=== PATIENT | male | born 1970 | race Caucasian/White ===

== ENCOUNTER 2016-11-19 16:02 | Inpatient (IN) | payer SELFPAY ==
--- NOTE | 2016-11-19 16:36 | ER Document Report ---
ED Medical Screen (RME) - General Stated Complaint: DIZZINESS Time seen by provider: 16:34 Mode of Arrival: Medic Information source: Patient Notes: Patient states sudden onset of headache, blurred vision, dizziness, chest pain and shortness of breath today. Has had similar episodes in the past. Has a history of high blood pressure, but has been out of his medicine metoprolol for 5 days. Patient denies nausea or vomiting. 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 I have greeted and performed a rapid initial assessment of this patient. A comprehensive ED assessment and evaluation of the patient, analysis of test results and completion of the medical decision making process will be conducted by additional ED providers. TRAVEL OUTSIDE OF THE [place] IN LAST 30 DAYS: No - Related Data Allergies/Adverse Reactions: No Known Allergies Allergy (Verified 11/19/16 16:32) Physical Exam - Vital signs Vitals: Temp Pulse Resp BP Pulse Ox 98.1 F 83 16 202/132 H 95 11/19/16 16:28 11/19/16 16:28 11/19/16 16:28 11/19/16 16:28 11/19/16 16:28 - HEENT Head: Normocephalic Conjunctiva: Normal Extraocular movements intact: Yes Pupils: PERRL - Respiratory Respiratory status: No respiratory distress Breath sounds: Normal - Cardiovascular Rhythm: Regular Heart sounds: Normal auscultation - Neurological Neuro grossly intact: Yes Course - Vital Signs Vital signs: Temp Pulse Resp BP Pulse Ox 98.1 F 83 16 202/132 H 95 11/19/16 16:28 11/19/16 16:28 11/19/16 16:28 11/19/16 16:28 11/19/16 16:28
[2016-11-19 17:11] LABS: ABSOLUTE BASOPHILS # (AUTO) 0.1 10^3/uL (0.0-0.2); ABSOLUTE LYMPHOCYTES (AUTO) 0.9 10^3/uL (0.5-4.7); ABSOLUTE MONOCYTES (AUTO) 0.5 10^3/uL (0.1-1.4); ABSOLUTE NEUT (AUTO) 9.1 10^3/uL (1.7-8.2); BASOPHILS % (AUTO) 0.5 % (0-2); EOSINOPHILS % (AUTO) 0.4 % (0-6); HEMATOCRIT 48.5 % (37.9-51.0); HEMOGLOBIN 15.7 g/dL (13.5-17.0); HGB HCT DIFFERENCE -1.4; LYMPHOCYTES % (AUTO) 8.7 % (13-45); MEAN CORPUSCULAR HEMOGLOBIN 27.2 pg (27.0-33.4); MEAN CORPUSCULAR HGB CONC 32.3 g/dL (32.0-36.0); MEAN CORPUSCULAR VOLUME 84 fl (80-97); MONOCYTES % (AUTO) 4.5 % (3-13); RED BLOOD COUNT 5.76 10^6/uL (4.35-5.55); SEGMENTED NEUTROPHILS % (AUTO) 85.9 % (42-78); WHITE BLOOD COUNT 10.6 10^3/uL (4.0-10.5)
[2016-11-19 17:21] LABS: PROTHROMBIN TIME 12.7 SEC (11.4-15.4)
[2016-11-19 17:35] LABS: ALANINE AMINOTRANSFERASE 23 U/L (21-72); ALBUMIN 4.6 g/dL (3.5-5.0); ALKALINE PHOSPHATASE 76 U/L (38-126); ANION GAP 13 (5-19); ASPARTATE AMINO TRANSFERASE 17 U/L (17-59); BILIRUBIN,TOTAL 0.5 mg/dL (0.2-1.3); BLOOD UREA NITROGEN 11 mg/dL (7-20); CALCIUM 9.7 mg/dL (8.4-10.2); CARBON DIOXIDE 27 mmol/L (22-30); CHLORIDE 99 mmol/L (98-107); CREATINE KINASE 54 U/L (55-170); CREATININE RESULT 0.99 mg/dL (0.52-1.25); GLUCOSE 115 mg/dL (75-110); POTASSIUM 3.8 mmol/L (3.6-5.0); SODIUM 139.3 mmol/L (137-145); TOTAL PROTEIN 7.9 g/dL (6.3-8.2)
[2016-11-19 17:45] LABS: CREATINE KINASE MB 0.24 ng/mL (<4.55)
[2016-11-19 17:48] LABS: TROPONIN I < 0.012 ng/mL
--- NOTE | 2016-11-19 18:17 | EKG REPORT ---
SEVERITY:- ABNORMAL ECG - SINUS RHYTHM LEFT ATRIAL ABNORMALITY LEFT VENTRICULAR HYPERTROPHY BORDERLINE PROLONGED QT INTERVAL : Confirmed by: Alexi Tran MD 19-Nov-2016 18:16:57
[2016-11-19] MEDS ORDERED: LABETALOL HCL INJ 20 MG/4 ML DISP.SYRIN IV ONE (18:27)
[2016-11-19] MEDS ORDERED: CLONIDINE HCL 0.2 MG TABLET PO ONE (18:28)
--- NOTE | 2016-11-19 19:11 | ER Document Report ---
ED Blood Pressure Problem <BANDAR MCKEON - Last Filed: 11/19/16 21:07> - General Mode of Arrival: Medic Information source: Patient TRAVEL OUTSIDE OF THE [place] IN LAST 30 DAYS: No - HPI Patient complains to provider of: High blood pressure, Other - Headache Onset: This afternoon Onset/Duration: Sudden, Persistent Associated symptoms: Blurred vision, Chest pain <MCKENZIE CRUMP - Last Filed: 11/23/16 20:54> - General Chief Complaint: High Blood Pressure Stated Complaint: DIZZINESS Notes: Patient is a 46-year-old male smoker presenting to the emergency department concerned of frontal headache with blurred vision that began at 1500 today while working. Patient states he was sitting at his desk. Patient is normally on blood pressure medications, but he has been out for the past 5 days. Patient' s primary care physician is in [place], but he will begin to see a new primary care provider once he gets health insurance of his jaw. Patient has been on blood pressure medications for the past 2 years. His brother and father both in their early 40s from a heart attack. Patient had a stress test one year ago that showed his right side of his heart is enlarged. Patient only has chest pain when he runs out of his blood pressure medications, but thinks this may be due to anxiety. Patient denies any problems with his kidneys. (MCKENZIE CRUMP) - Related Data Allergies/Adverse Reactions: No Known Allergies Allergy (Verified 11/19/16 16:32) Past Medical History - General Information source: Patient - Social History Smoking Status: Current Every Day Smoker Chew tobacco use (# tins/day): No Frequency of alcohol use: None Drug Abuse: None Family History: Reviewed & Not Pertinent, CAD - Brother 2 have from MIs at 39 and 41, Father passed from MD Patient has suicidal ideation: No Patient has homicidal ideation: No - Past Medical History Cardiac Medical History: Reports: Hx Hypertension Renal/ Medical History: Denies: Hx Peritoneal Dialysis <MCKENZIE CRUMP - Last Filed: 11/23/16 20:54> Review of Systems - Review of Systems Constitutional: No symptoms reported EENT: See HPI, Blurred vision Cardiovascular: See HPI, Chest pain Respiratory: No symptoms reported Gastrointestinal: No symptoms reported. denies: Vomiting Genitourinary: No symptoms reported Male Genitourinary: No symptoms reported Musculoskeletal: No symptoms reported Skin: No symptoms reported Hematologic/Lymphatic: No symptoms reported Neurological/Psychological: See HPI, Headaches - Forehead -: Yes All other systems reviewed and negative <MCKENZIE CRUMP - Last Filed: 11/23/16 20:54> Physical Exam - Vital signs Interpretation: Hypertensive - General General appearance: Alert - HEENT Head: Normocephalic, Atraumatic Eyes: Normal Pupils: PERRL - Respiratory Respiratory status: No respiratory distress Chest status: Nontender Breath sounds: Normal Chest palpation: Normal - Cardiovascular Rhythm: Regular Heart sounds: Normal auscultation Murmur: No - Abdominal Inspection: Normal Distension: No distension Bowel sounds: Normal Tenderness: Nontender Organomegaly: No organomegaly - Back Back: Normal, Nontender - Extremities General upper extremity: Normal inspection, Nontender, Normal color, Normal ROM , Normal temperature General lower extremity: Normal inspection, Nontender, Normal color, Normal ROM , Normal temperature, Normal weight bearing - Neurological Neuro grossly intact: Yes Cognition: Normal James Coma Scale Eye Opening: Spontaneous Effie Coma Scale Verbal: Oriented James Coma Scale Motor: Obeys Commands James Coma Scale Total: 15 Speech: Normal - Psychological Associated symptoms: Normal affect, Normal mood - Skin Skin Temperature: Warm Skin Moisture: Dry Skin Color: Normal <MCKENZIE CRUMP - Last Filed: 11/23/16 20:54> - Vital signs Vitals: Temp Pulse Resp BP Pulse Ox 98.1 F 83 16 202/132 H 95 11/19/16 16:28 11/19/16 16:28 11/19/16 16:28 11/19/16 16:28 11/19/16 16:28 Course - Laboratory Result Diagrams: 11/19/16 16:57 11/19/16 16:57 <BANDAR MCKEON - Last Filed: 11/19/16 21:07> - Laboratory Result Diagrams: 11/20/16 03:54 11/20/16 03:54 - Consults Dr. Pete Time consulted: 20:46 <MCKENZIE CRUMP - Last Filed: 11/23/16 20:54> - Re-evaluation Re-evalutation: 11/19/16 21:04 I personally performed the services described in the documentation, reviewed and edited the documentation which was dictated to my scribe in my presence, and it accurately records my words and actions. presents emergency department with the gradual onset of headache blurred vision and dizziness which started at work around 130s afternoon states he has a long- standing history of high blood pressure ran out of his medication 5 days ago. He said he is new to the area doesn't have a primary care physician described the headache is frontal throbbing associated with blurred vision no syncope or near-syncope blurred vision last and then resolves says he's had similar episodes like this when his blood pressures been high in the past. Said he got short of breath and chest pain what he described was he states that he is having an anxiety attack is really upset about the headache and the blood pressure he began breathing fast that he had tingling in his fingertips and his chest started to hurt. He has no history of MD PE or dissection did state that he had a negative stress test about a year ago. On physical examination blood pressure 202/132. Patient awake alert no neurological deficits no speech impediment no facial droop trach is midline neck is supple heart lungs abdomen are clear. Good pulses and perfusion throughout normal neurological exam with no deficits. CT of the head shows 10 mm density ischemic. Patient is not a candidate or in the window for thrombolytics. No associated hemorrhagic bleed. Blood pressure initially treated with IV labetalol and clonidine did not drop the blood pressure still 198/131 at the bedside start him on a Cardene drip. Spoke with Dr. Pete's can admit the patient to the hospital in the ICU. (BANDAR MCKEON) - Vital Signs Vital signs: Temp Pulse Resp BP Pulse Ox 97.5 F 78 14 146/98 H 99 11/21/16 08:26 11/21/16 08:26 11/21/16 08:26 11/21/16 08:26 11/21/16 08:26 - Laboratory Laboratory results interpreted by me: 11/19/16 11/19/16 16:57 16:57 WBC 10.6 H RBC 5.76 H Seg Neutrophils % 85.9 H Lymphocytes % 8.7 L Absolute Neutrophils 9.1 H Glucose 115 H Creatine Kinase 54 L - Consults Dr. Pete Reason for consultation: 11/19/16 20:47 Dr. Pete was paged. (MCKENZIE CRUMP) Critical Care Note - Critical Care Note Total time excluding time spent on procedures (mins): 75 <BANDAR MCKEON - Last Filed: 11/19/16 21:07> Discharge - Discharge Admitting Provider: Hospitalist Unit Admitted: ICU <BANDAR MCKEON - Last Filed: 11/19/16 21:07> <MCKENZIE CRUMP - Last Filed: 11/23/16 20:54> - Discharge Clinical Impression: Hypertensive crisis CVA (cerebral vascular accident) Qualifiers: CVA mechanism: unspecified Qualified Code(s): I63.9 - Cerebral infarction, unspecified Condition: Stable Disposition: HOME, SELF-CARE Scribe Documentation - Scribe Written by Scribe:: Mckenzie Crump 11/19/2016 1911 acting as scribe for :: Roberto <MCKENZIE CRUMP - Last Filed: 11/23/16 20:54>
[2016-11-19] MEDS ORDERED: LORAZEPAM INJ 2 MG/1 ML VIAL IV ONE (20:08)
[2016-11-19] MEDS ORDERED: LORAZEPAM INJ 2 MG/1 ML VIAL ONE (20:08)
[2016-11-19] MEDS ORDERED: NICARDIPINE HCL RTU, ISO-OS 200 ML IV PRN (20:46)
[2016-11-19] MEDS ORDERED: DIAZEPAM 5 MG TABLET PO PRN (21:11)
[2016-11-19] MEDS ORDERED: HYDRALAZINE HCL INJ/PF 20 MG/1 ML SDV IV PRN (21:16)
[2016-11-19] MEDS ORDERED: ENALAPRILAT DIHYDRATE INJ/PF 2.5 MG/2 ML SDV IV PRN (21:16)
[2016-11-19 21:52] LABS: CREATINE KINASE MB < 0.22 ng/mL (<4.55); TROPONIN I < 0.012 ng/mL
[2016-11-19] MEDS ORDERED: ASPIRIN 325 MG TABLET PO ONE (22:00)
[2016-11-19] MEDS ORDERED: NITROGLYCERIN 2% OINTMENT 1 GM PACKET TP ONE (22:00)
[2016-11-19] MEDS ORDERED: ATORVASTATIN CALCIUM 80 MG TABLET PO SCH (22:00)
[2016-11-19] MEDS ORDERED: DIAZEPAM INJ 10 MG/2 ML DISP.SYRIN IV ONE (22:00)
[2016-11-19 22:01] LABS: URINE BARBITURATES SCREEN NEGATIVE; URINE METHADONE SCREEN NEGATIVE; URINE OPIATES LOW NEGATIVE; URINE PHENCYCLIDINE SCREEN NEGATIVE
[2016-11-20] MEDS ORDERED: CLONIDINE HCL 0.2 MG TABLET PO SCH
[2016-11-20] MEDS ORDERED: NITROGLYCERIN 2% OINTMENT 1 GM PACKET TP SCH (03:00)
[2016-11-20 04:13] LABS: ABSOLUTE BASOPHILS # (AUTO) 0.1 10^3/uL (0.0-0.2); ABSOLUTE EOSINOPHILS # (AUTO) 0.2 10^3/uL (0.0-0.6); ABSOLUTE MONOCYTES (AUTO) 0.6 10^3/uL (0.1-1.4); ABSOLUTE NEUT (AUTO) 4.8 10^3/uL (1.7-8.2); EOSINOPHILS % (AUTO) 2.9 % (0-6); HEMOGLOBIN 15.3 g/dL (13.5-17.0); HGB HCT DIFFERENCE -0.1; LYMPHOCYTES % (AUTO) 25.7 % (13-45); MEAN CORPUSCULAR HEMOGLOBIN 27.9 pg (27.0-33.4); MEAN CORPUSCULAR HGB CONC 33.2 g/dL (32.0-36.0); MEAN CORPUSCULAR VOLUME 84 fl (80-97); MONOCYTES % (AUTO) 7.9 % (3-13); RED BLOOD COUNT 5.47 10^6/uL (4.35-5.55); RED CELL DISTRIBUTION WIDTH 14.4 % (11.5-14.0); SEGMENTED NEUTROPHILS % (AUTO) 62.5 % (42-78); WHITE BLOOD COUNT 7.7 10^3/uL (4.0-10.5)
[2016-11-20] MEDS ORDERED: THIAMINE HCL 100 MG, FOLIC ACID 1 MG in NORMAL SALINE 50 ML IV SCH (04:15)
[2016-11-20 04:27] LABS: ANION GAP 10 (5-19); BLOOD UREA NITROGEN 10 mg/dL (7-20); CALCIUM 9.4 mg/dL (8.4-10.2); CARBON DIOXIDE 25 mmol/L (22-30); CHLORIDE 106 mmol/L (98-107); CHOLESTEROL 168.74 mg/dL (0-200); CREATINE KINASE 44 U/L (55-170); CREATININE RESULT 0.98 mg/dL (0.52-1.25); Direct HDL 33 mg/dL (>40); GLUCOSE 93 mg/dL (75-110); POTASSIUM 3.5 mmol/L (3.6-5.0); SODIUM 140.9 mmol/L (137-145); TRIGLYCERIDES 120 mg/dL (<150)
[2016-11-20 04:38] LABS: DIRECT LDL 110 mg/dL (<100)
[2016-11-20 04:43] LABS: CREATINE KINASE MB < 0.22 ng/mL (<4.55); TROPONIN I < 0.012 ng/mL
[2016-11-20] MEDS ORDERED: THIAMINE HCL INJ 200 MG/2 ML VIAL IV SCH (05:00)
[2016-11-20] MEDS ORDERED: FOLIC ACID INJ 5 MG/1 ML 10 ML VIAL IV SCH (05:00)
[2016-11-20] MEDS ORDERED: ASPIRIN 325 MG TABLET PO SCH (10:00)
[2016-11-20] MEDS ORDERED: DOCUSATE SODIUM 100 MG CAPSULE PO SCH (10:00)
[2016-11-20] MEDS ORDERED: DIAZEPAM 5 MG TABLET PO PRN (11:23)
[2016-11-20 11:28] LABS: CREATINE KINASE MB < 0.22 ng/mL (<4.55); TROPONIN I < 0.012 ng/mL
--- NOTE | 2016-11-20 11:37 | PDOC PROGRESS REPORT ---
Subjective Progress Note for:: 11/20/16 Subjective:: Patient denies chest pain, focal weakness numbness, headaches, visual disturbance. He does complain of depression and anxiety since moving here from [facility] recently. He is unemployed and states he is not able to make any friends. He states that he never leaves his bedroom and has difficulty sleeping at night. He states that one point couple weeks ago he was having suicidal thoughts. He currently denies suicidal ideation at this time. Patient denies fever, chills, headache, new focal weakness, chest pain, shortness of breath, abdominal pain, nausea, vomiting, diarrhea, constipation. Physical Exam Vital Signs: Temp Pulse Resp BP Pulse Ox 98.1 F 67 16 149/107 H 93 11/19/16 16:28 11/20/16 06:00 11/20/16 09:01 11/20/16 09:01 11/20/16 09:01 GENERAL: No acute distress HEENT: Conjunctiva clear, nonicteric, moist mucous membranes, no JVD, midline trachea RESPIRATORY: Clear to auscultation bilaterally, no wheezes, no rhonchi CARDIAC: Regular rate and rhythm, no murmurs/gallops/rubs ABDOMEN: Soft, nondistended, nontender, positive bowel sounds, no rebound, no guarding EXTREMETIES: No edema, cyanosis, clubbing NEUROLOGIC: Alert, oriented to person/place/time, CN's grossly intact, no focal deficits SKIN: No rash, wounds PSYCH: Depressed mood, flat affect MUSCULOSKELETAL: Reproducible left lateral chest wall tenderness Results Laboratory Results: 11/20/16 03:54 11/20/16 03:54 11/20/16 11/20/16 11/20/16 03:54 03:54 03:54 WBC 7.7 RBC 5.47 Hgb 15.3 Hct 46.0 MCV 84 MCH 27.9 MCHC 33.2 RDW 14.4 H Plt Count 238 Seg Neutrophils % 62.5 Lymphocytes % 25.7 Monocytes % 7.9 Eosinophils % 2.9 Basophils % 1.0 Absolute Neutrophils 4.8 Absolute Lymphocytes 2.0 Absolute Monocytes 0.6 Absolute Eosinophils 0.2 Absolute Basophils 0.1 Sodium 140.9 Potassium 3.5 L Chloride 106 Carbon Dioxide 25 Anion Gap 10 BUN 10 Creatinine 0.98 Est GFR ( Amer) > 60 Est GFR (Non-Af Amer) > 60 Glucose 93 Calcium 9.4 Triglycerides 120 Cholesterol 168.74 LDL Cholesterol Direct 110 H VLDL Cholesterol 24.0 HDL Cholesterol 33 L TSH 0.73 11/19/16 11/20/16 11/20/16 21:15 03:54 03:54 Creatine Kinase 44 L CK-MB (CK-2) < 0.22 < 0.22 Troponin I < 0.012 < 0.012 Impressions: Chest X-Ray 11/19/16 16:36 IMPRESSION: Minimal subsegmental atelectasis in the left lung base. Head CT 11/19/16 18:27 IMPRESSION: No hemorrhage. 10 mm area of low density in the right frontal periventricular white matter likely due to micro-vascular ischemic change, age undetermined. Assessment & Plan - Diagnosis (1) Hypertensive urgency Is this a current diagnosis for this admission?: YesPlan: Resume metoprolol 25 mg twice daily. Continue IV hydralazine when necessary. (2) Chest pain Qualifiers: Chest pain type: unspecified Qualified Code(s): R07.9 - Chest pain, unspecified Is this a current diagnosis for this admission?: YesPlan: Cardiac enzymes negative. Chest pain is reproducible on exam and likely represents musculoskeletal chest pain. Patient reportedly had a negative stress test at [facility] recently. (3) Depression Is this a current diagnosis for this admission?: YesPlan: Would like to start patient on trazodone 50 mg nightly. Valium PRN. I would like to consult Dr. Elliott of psychology. (4) Abnormal head CT Is this a current diagnosis for this admission?: YesPlan: Head CT 11/19/16 18:27 IMPRESSION: No hemorrhage. 10 mm area of low density in the right frontal periventricular white matter likely due to micro-vascular ischemic change, age undetermined. This likely represents a small remote stroke versus microvascular ischemic changes. I would like to check MRI of the brain and carotid Dopplers. Continue aspirin and statin. (5) Tobacco abuse Is this a current diagnosis for this admission?: Yes - Time Time Spent with patient: 35 or more minutes
[2016-11-20] MEDS ORDERED: METOPROLOL TARTRATE 25 MG TABLET PO ONE (12:00)
--- NOTE | 2016-11-20 16:46 | PSYCHOLOGICAL NOTE ---
Psych Note - Psych Note Psych Note: Patient presented to [facility] ED for sudden onset of headache, blurred vision, dizziness, chest pain and shortness of breath today. Has had similar episodes in the past. Psych consult requested because patient complains of depression and anxiety since moving here from [facility] recently. He is unemployed and states he is not able to make any friends. He states that he never leaves his bedroom and has difficulty sleeping at night. He states that one point couple weeks ago he was having suicidal thoughts. He currently denies suicidal ideation at this time. Patient disclosed that he has suicidal ideation however he does not have a plan. He continued disclosed that he has not attempted to seek services for mental health because he does not have insurance. He currently works for [employer] and states 1 week he will be entitled to services. He continued to disclose that he moved from [place] to [place] approximately 4 months ago. He denies receiving any services for mental health in [place] however didn 't suffer from depression on and off that was "too embarrassed to tell anybody. " Patient is alert and orientated to person place time and circumstance. Mood is euthymic with congruent affect. Patient endorses suicidal ideation with no plan , means or intent. Patient denies homicidal ideation. Patient denies auditory and visual hallucinations; no delusions are noted. Thought process is organized and linear. conversational speech was slow. Eye contact was well maintained. Intellectual abilities appear to be within normal range. Attention and concentration are good. Insight, judgment and impulse control are fair. 311 (F32.9) Unspecified Depressive Disorder 799.59 (R41.9) Unspecified Neurocognitive Disorder; as evidenced in Head CT - 10 mm area of low density in the right frontal periventricular white matter likely due to micro-vascular ischemic change, age undetermined. Impression\\plan: Patient is psychiatrically cleared for discharge; patient discloses suicidal ideation however as planned means or intent. Patient does not meet IVC criteria per [place] GS 122 C. Patient disclosed an increase in anxiety and depression since moving to [place] however has had bouts of depression in the past. Patient has not obtained outpatient services for mental health because of insurance difficulties however states he will be obtaining services soon. Clinician notes patient they have difficulty with impulse control, insight and judgment moving from identified findings in head CT. Dr. Elliott was consulted on the care and management of this patient; attending physician is in agreement with recommendations and disposition.
[2016-11-20] MEDS ORDERED: HYDROXYZINE PAMOATE 50 MG CAPSULE PO PRN (17:34)
[2016-11-20] MEDS ORDERED: BUSPIRONE HCL 10 MG TABLET PO SCH (22:00)
[2016-11-20] MEDS ORDERED: LEVETIRACETAM 500 MG TABLET PO SCH (22:00)
[2016-11-20] MEDS ORDERED: ATORVASTATIN CALCIUM 20 MG TABLET PO SCH (22:00)
[2016-11-20] MEDS ORDERED: TRAZODONE HCL 50 MG TABLET PO SCH (22:00)
[2016-11-20] MEDS ORDERED: METOPROLOL TARTRATE 25 MG TABLET PO SCH (22:00)
[2016-11-21 08:35] VITALS: BP 146/98
--- NOTE | 2016-11-21 14:49 | PDOC DISCHARGE SUMMARY ---
General - Admit/Disc Date/PCP Admission Date/Primary Care Provider: 11/19/16 21:11 Discharge Date: 11/21/16 - Discharge Diagnosis (1) CVA (cerebral vascular accident) Is this a current diagnosis for this admission?: YesSummary: The patient has had complete resolution of his symptoms and has had a normal MRI and his findings most likely from a transient ischemic attack. (2) Hypertensive urgency Is this a current diagnosis for this admission?: YesSummary: The patient had ran out of all of his medications for the last several days and he was treated for the hypertensive urgency and restarted on his usual medications with good control as blood pressure now. (3) Anxiety disorder Is this a current diagnosis for this admission?: YesSummary: Patient was seen by psychiatry and was started on antidepressants (4) Depression Is this a current diagnosis for this admission?: Yes - Additional Information Resuscitation Status: Full Code Discharge Diet: Regular Discharge Activity: Activity As Tolerated Home Medications: Aspirin [Aspirin 325 mg Tablet] 325 mg PO DAILY tablet 11/21/16 Atorvastatin Calcium [Lipitor 20 mg Tablet] 20 mg PO QHS #30 tablet 11/21/16 Buspirone HCl [Buspar 10 mg Tablet] 10 mg PO QHS #30 tablet 11/21/16 Diazepam [Valium 5 mg Tablet] 5 mg PO Q8HP PRN #20 tablet 11/21/16 Hydroxyzine Pamoate [Vistaril 50 mg Capsule] 50 mg PO Q6HP PRN #30 capsule 11/21 Levetiracetam [Keppra 500 mg Tablet] 250 mg PO Q12 #60 tablet 11/21/16 Metoprolol Tartrate [Lopressor 25 mg Tablet] 100 mg PO Q12 #60 tablet 11/21/16 Trazodone HCl [Desyrel 50 mg Tablet] 50 mg PO QHS #30 tablet 11/21/16 History of Present Illness History of Present Illness: DEON SARGENT is a 46 year old male who recently moved to the area from [place] who presented with blurred vision that began at work. He presented emergency room and had a normal head CT. He was however noted to be very hypertensive. He had stopped his antihypertensives he ran out of them and recently moved to the area. Hospital Course Hospital Course: 46-year-old gentleman who presented with blurred vision and very elevated blood pressures. There was concern initially that he may for CVA given his findings. The patient's head CT was unremarkable and he was treated presumptively as if a CVA. MRI of the brain did not show any type of acute event. Carotid Dopplers also were unremarkable. He was noted to have elevated blood pressures. His antihypertensives were restarted his blood pressure came down. He has since had resolution of all of his symptoms. He has been depressed and anxious and was seen by psychiatry. Patient is being started on an hypertensives as well as some Valium when necessary for an anxiolytic. Patient was doing well despite his baseline was felt that he was stable for discharge. Patient denied any suicidal or homicidal ideations. Physical Exam Vital Signs: Temp Pulse Resp BP Pulse Ox 97.5 F 78 14 146/98 H 99 11/21/16 08:26 11/21/16 08:26 11/21/16 08:26 11/21/16 08:26 11/21/16 08:26 General appearance: PRESENT: no acute distress Eye exam: PRESENT: conjunctiva pink. ABSENT: scleral icterus Mouth exam: PRESENT: moist, tongue midline Neck exam: ABSENT: carotid bruit, JVD, lymphadenopathy, thyromegaly Respiratory exam: PRESENT: clear to auscultation layne. ABSENT: rales, rhonchi, wheezes Cardiovascular exam: PRESENT: RRR. ABSENT: diastolic murmur, rubs, systolic murmur GI/Abdominal exam: PRESENT: normal bowel sounds, soft. ABSENT: distended, guarding, mass, organolmegaly, rebound, tenderness Extremities exam: PRESENT: full ROM. ABSENT: calf tenderness, clubbing, pedal edema Neurological exam: PRESENT: alert, awake, oriented to person, oriented to place , oriented to time, oriented to situation, CN II-XII grossly intact. ABSENT: motor sensory deficit Psychiatric exam: PRESENT: appropriate affect Skin exam: PRESENT: dry, intact, warm. ABSENT: cyanosis, rash Results Laboratory Results: 11/20/16 03:54 11/20/16 03:54 11/19/16 11/20/16 11/20/16 21:15 03:54 03:54 Creatine Kinase 44 L CK-MB (CK-2) < 0.22 < 0.22 Troponin I < 0.012 < 0.012 11/20/16 10:25 Creatine Kinase CK-MB (CK-2) < 0.22 Troponin I < 0.012 Impressions: Chest X-Ray 11/19/16 16:36 IMPRESSION: Minimal subsegmental atelectasis in the left lung base. Head CT 11/19/16 18:27 IMPRESSION: No hemorrhage. 10 mm area of low density in the right frontal periventricular white matter likely due to micro-vascular ischemic change, age undetermined. Carotid Doppler Study 11/20/16 10:47 IMPRESSION: NO HEMODYNAMICALLY SIGNIFICANT STENOSIS. Head MRI 11/20/16 10:47 IMPRESSION: No acute intracranial abnormality identified. Chronic microvascular ischemic disease changes noted within the periventricular white matter. Qualifiers PATEINT BEING DISCHARGED WITH ANY OF THE FOLLOWING DIAGNOSIS?: Stroke Stroke Pt being discharged on Anti-thrombolytic therapy?: Yes Stroke Pt being discharged on Anti-coagulation therapy?: No Reason(s) for not prescribing Anti-coagulation therapy:: Not indicated Stroke Pt being discharged on Statins?: Yes Plan Discharge Plan: he is discharged to home in stable condition. He will follow primary care in 2 weeks. Time Spent: Less than 30 Minutes
== END 2016-11-21 09:06 | disposition home or self-care (01) | DRG 305 ==
LOC: ER 16:02 → EH 21:11 → UNDOADMIN 22:38 → EH 11-20 10:17
PROVIDERS: ADMIT Internal Medicine; ATTEND Internal Medicine
DX: I16.0 Hypertensive urgency (principal); G45.9 Transient cerebral ischemic attack, unspecified; F32.9 Major depressive disorder, single episode, unspecified; F41.9 Anxiety disorder, unspecified; R07.9 Chest pain, unspecified; H53.9 Unspecified visual disturbance; R20.0 Anesthesia of skin
CPT/HCPCS: 36415; 70450; 70551; 71010; 80048; 80053; 80061; 80307; 82550; 82553; 84443; 84484; 85025; 85610; 93005; 93010; 93880; 96374; 96375; 99291; 99292; J0360; J2060; J3490

== ENCOUNTER 2017-02-12 01:26 | Emergency (ER) | payer SELFPAY ==
[2017-02-12 02:31] LABS: ABSOLUTE BASOPHILS # (AUTO) 0.1 10^3/uL (0.0-0.2); ABSOLUTE EOSINOPHILS # (AUTO) 0.3 10^3/uL (0.0-0.6); ABSOLUTE LYMPHOCYTES (AUTO) 1.6 10^3/uL (0.5-4.7); ABSOLUTE MONOCYTES (AUTO) 0.7 10^3/uL (0.1-1.4); BASOPHILS % (AUTO) 1.3 % (0-2); EOSINOPHILS % (AUTO) 3.2 % (0-6); HEMATOCRIT 45.9 % (37.9-51.0); HEMOGLOBIN 15.2 g/dL (13.5-17.0); HGB HCT DIFFERENCE -0.3; LYMPHOCYTES % (AUTO) 16.4 % (13-45); MEAN CORPUSCULAR HEMOGLOBIN 27.6 pg (27.0-33.4); MEAN CORPUSCULAR HGB CONC 33.1 g/dL (32.0-36.0); MEAN CORPUSCULAR VOLUME 84 fl (80-97); MONOCYTES % (AUTO) 7.4 % (3-13); SEGMENTED NEUTROPHILS % (AUTO) 71.7 % (42-78); WHITE BLOOD COUNT 9.8 10^3/uL (4.0-10.5)
[2017-02-12 02:45] LABS: ALANINE AMINOTRANSFERASE 21 U/L (21-72); ALBUMIN 4.2 g/dL (3.5-5.0); ALKALINE PHOSPHATASE 78 U/L (38-126); ANION GAP 10 (5-19); ASPARTATE AMINO TRANSFERASE 17 U/L (17-59); BILIRUBIN,DIRECT 0.4 mg/dL (0.0-0.4); BILIRUBIN,TOTAL 0.7 mg/dL (0.2-1.3); BLOOD UREA NITROGEN 16 mg/dL (7-20); CALCIUM 9.4 mg/dL (8.4-10.2); CARBON DIOXIDE 27 mmol/L (22-30); CHLORIDE 104 mmol/L (98-107); CREATINE KINASE 39 U/L (55-170); CREATININE RESULT 0.94 mg/dL (0.52-1.25); GLUCOSE 89 mg/dL (75-110); SODIUM 140.8 mmol/L (137-145); TOTAL PROTEIN 7.7 g/dL (6.3-8.2)
--- NOTE | 2017-02-12 02:50 | RADIOLOGY REPORT (SQ) ---
EXAM DESCRIPTION: CHEST PA/LAT COMPLETED DATE/TIME: 02/12/2017 2:33 am REASON FOR STUDY: cp COMPARISON: 11/19/2016. EXAM PARAMETERS: NUMBER OF VIEWS: two views TECHNIQUE: Digital Frontal and Lateral radiographic views of the chest acquired. RADIATION DOSE: NA LIMITATIONS: none FINDINGS: LUNGS AND PLEURA: No opacities, masses or pneumothorax. No pleural effusion. MEDIASTINUM AND HILAR STRUCTURES: No masses or contour abnormalities. HEART AND VASCULAR STRUCTURES: Heart normal size. No evidence for failure. BONES: No acute findings. HARDWARE: None in the chest. OTHER: No other significant finding. IMPRESSION: NO SIGNIFICANT RADIOGRAPHIC FINDING IN THE CHEST. TECHNICAL DOCUMENTATION: JOB ID: [id number] [employer]- All Rights Reserved
--- NOTE | 2017-02-12 02:55 | ER Document Report ---
ED General - General Chief Complaint: Chest Pain > 30 Stated Complaint: CHEST PAINS Time Seen by Provider: 02/12/17 02:47 Mode of Arrival: Ambulatory Information source: Patient TRAVEL OUTSIDE OF THE [place] IN LAST 30 DAYS: No - HPI Notes: Pt presents with c/o chest pain and dizziness and not feeling well. States that he has a blood pressure problem and has been out of metoprolol x 3 weeks. A/O, answers questions, appropriate. Patient admits that he has been significantly stressed recently related to not being able to get his medications. Patient states he recently was on aspirin, metoprolol XR 25 mg daily and lisinopril 20 mg daily, but has been out for 2 weeks. Patient reports he feels somewhat anxious. Patient denies any numbness or paresthesia but he reports he is having chest pain. He denies any difficulty breathing or fever cough or belching. Patient has a history of hypertension chest pain hospitalization on 09/07/16 where he was sent to [facility] and states he had echocardiogram and was told the right side of his heart was slightly enlarged and he did a treadmill stress test which he passed. Was noncompliant with his medications at that time. Patient Patient had another hospitalization on 11/19/16 where he reported feeling blurred vision and somewhat dizzy and had a diagnosis of hypertensive urgency with anxiety and depression and had a negative brain MRI and negative carotid Doppler study. He was noncompliant with his medications at that current time also. Discharge medication list from last hospitalization: Aspirin [Aspirin 325 mg Tablet] 325 mg PO DAILY tablet 11/21/16 Atorvastatin Calcium [Lipitor 20 mg Tablet] 20 mg PO QHS #30 tablet 11/21/16 Buspirone HCl [Buspar 10 mg Tablet] 10 mg PO QHS #30 tablet 11/21/16 Diazepam [Valium 5 mg Tablet] 5 mg PO Q8HP PRN #20 tablet 11/21/16 Hydroxyzine Pamoate [Vistaril 50 mg Capsule] 50 mg PO Q6HP PRN #30 capsule 11/21 Levetiracetam [Keppra 500 mg Tablet] 250 mg PO Q12 #60 tablet 11/21/16 Metoprolol Tartrate [Lopressor 25 mg Tablet] 100 mg PO Q12 #60 tablet 11/21/16 Trazodone HCl [Desyrel 50 mg Tablet] 50 mg PO QHS #30 tablet 11/21/16 Family history cardiac disease at young ages. Patient later admitted to the nursing staff that he was stressed related to an argument with his brother that he lives with that occurred earlier this evening. - Related Data Allergies/Adverse Reactions: No Known Allergies Allergy (Verified 11/19/16 16:32) Past Medical History - General Information source: Patient - She - Social History Smoking Status: Current Every Day Smoker Smoking Education Provided: Yes Frequency of alcohol use: None Drug Abuse: None Lives with: Family Family History: Reviewed & Not Pertinent, CAD - Past Medical History Cardiac Medical History: Reports: Hx Hypertension Renal/ Medical History: Denies: Hx Peritoneal Dialysis Review of Systems - Review of Systems Notes: REVIEW OF SYSTEMS: CONSTITUTIONAL : Denies fever, chills, or sweats. Denies recent illness. EENT: Denies eye, ear, throat, or mouth pain or symptoms. Denies nasal or sinus congestion or discharge. Denies throat, tongue, or mouth swelling or difficulty swallowing. CARDIOVASCULAR: Denies palpitations or racing or irregular heart beat. Denies ankle edema. RESPIRATORY: Denies cough, cold, or chest congestion. Denies shortness of breath, difficulty breathing, or wheezing. GASTROINTESTINAL: Denies abdominal pain or distention. Denies nausea, vomiting , or diarrhea. Denies blood in vomitus, stools, or per rectum. Denies black, tarry stools. Denies constipation. GENITOURINARY: Denies difficulty urinating, burning, frequency, blood in urine , or discharge. MUSCULOSKELETAL: Denies back or neck pain or stiffness. Denies joint pain or swelling. SKIN: Denies rash, lesions or sores. HEMATOLOGIC : Denies easy bruising or bleeding. LYMPHATIC: Denies swollen, enlarged glands. NEUROLOGICAL: Denies confusion or altered mental status. Denies passing out or loss of consciousness. Denies headache. Denies weakness or paralysis or loss of use of either side. Denies problems with gait or speech. Denies sensory loss, numbness, or tingling. Denies seizures. Patient states he intermittently feels somewhat dizzy and lightheaded. PSYCHIATRIC: Denies depression, suicidal ideation, or homicidal ideation. ALL OTHER SYSTEMS REVIEWED AND NEGATIVE. Dictation was performed using [employer] voice recognition software Physical Exam - Vital signs Vitals: Temp Pulse Resp BP Pulse Ox 98.4 F 94 16 222/146 H 98 02/12/17 01:53 02/12/17 01:53 02/12/17 01:53 02/12/17 01:53 02/12/17 01:53 - Notes Notes: PHYSICAL EXAMINATION: GENERAL: Well-appearing, well-nourished and in no acute distress. HEAD: Atraumatic, normocephalic. EYES: Pupils equal round and reactive to light, extraocular movements intact, sclera anicteric, conjunctiva are normal. ENT: Nares patent, oropharynx clear without exudates. Moist mucous membranes. NECK: Normal range of motion, supple without lymphadenopathy LUNGS: Breath sounds clear to auscultation bilaterally and equal. No wheezes rales or rhonchi. HEART: Regular rate and rhythm without murmurs. Reproducible anterior left chest wall discomfort on exam. No crepitance or bony deformity. ABDOMEN: Soft, nontender, nondistended abdomen. No guarding, no rebound. No masses appreciated. Musculoskeletal: Normal range of motion, no pitting or edema. No cyanosis. NEUROLOGICAL: Cranial nerves grossly intact. Normal speech, normal gait. Normal sensory, motor exams. normal reflexes. PSYCH: Anxious. Will not make good eye contact. SKIN: Warm, Dry, normal turgor, no rashes or lesions noted. Course - Re-evaluation Re-evalutation: 02/12/17 03:22 Patient was given IV Valium, labetalol and was given p.o. lisinopril and aspirin. 02/12/17 04:44 Patient was somewhat tearful with nursing staff. Repeat blood pressure was improved to 175/116. Patient was given additional labetalol 20 mg IV and Ativan 1 mg IV. Urinalysis showed evidence for urinary tract infection. A DNA probe was ordered to rule out gonorrhea and chlamydia. A urine culture was ordered. Patient was given a dose of Bactrim. 02/12/17 04:57 02/12/17 04:57 No evidence for pneumonia, congestive heart failure, hypoxia, end-stage renal disease, anemia, electrolyte imbalance, significant drug toxidrome. 02/12/17 04:58 Patient counseled about the need for follow-up regarding his chest pain and his hypertension. Repeat blood pressures were improved. 02/12/17 05:56 - Vital Signs Vital signs: Temp Pulse Resp BP Pulse Ox 98.4 F 94 24 H 143/100 H 97 02/12/17 01:53 02/12/17 01:53 02/12/17 06:03 02/12/17 06:03 02/12/17 06:03 - Laboratory Result Diagrams: 02/12/17 02:15 02/12/17 02:15 Laboratory results interpreted by me: 02/12/17 02/12/17 02/12/17 02:15 02:15 03:27 RDW 15.0 H Creatine Kinase 39 L Urine Protein 30 H Urine Ketones 20 H Urine Urobilinogen 2.0 H Ur Leukocyte Esterase SMALL H - EKG Interpretation by Ut EKG shows normal: Sinus rhythm Rate: Normal Additional EKG results interpreted by me: 02/12/17 03:23 EKG as interpreted by mn showed normal sinus rhythm heart rate of 85. There is no gross evidence for acute HI or ischemia identified. Left ventricular hypertrophy was noted. There is no significant change from previous EKG from . Discharge - Discharge Clinical Impression: Noncompliance Chest pain Qualifiers: Chest pain type: unspecified Qualified Code(s): R07.9 - Chest pain, unspecified Hypertension Qualifiers: Hypertension type: essential hypertension Qualified Code(s): I10 - Essential ( primary) hypertension Urinary tract infection Qualifiers: Urinary tract infection type: site unspecified Hematuria presence: without hematuria Qualified Code(s): N39.0 - Urinary tract infection, site not specified Disposition: HOME, SELF-CARE Instructions: Family Physicians / Practices, Trimethoprim-Sulfa ([facility]), Urinary Tract Infection ([facility]), Chest Pain of Unclear Cause ([facility]), High Blood Pressure ( [facility]) Additional Instructions: It is important to take your medications for your blood pressure regularly. 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 Take a baby aspirin every day. Prescriptions: Diazepam [Valium 5 mg Tablet] 5 mg PO Q8HP PRN #20 tablet PRN Reason: Lisinopril 20 mg PO DAILY #60 tablet Metoprolol Succinate [Toprol Xl 25 mg Tab.sr] 25 mg PO DAILY #60 tab.sr.24h Sulfamethoxazole/Trimethoprim [Bactrim Ds Tablet] 1 each PO BID #14 tablet Forms: Return to Work
[2017-02-12 03:00] LABS: CREATINE KINASE MB < 0.22 ng/mL (<4.55); TROPONIN I < 0.012 ng/mL
[2017-02-12] MEDS ORDERED: LABETALOL HCL INJ 20 MG/4 ML DISP.SYRIN IV ONE ×2 (03:10→04:39)
[2017-02-12] MEDS ORDERED: LISINOPRIL 10 MG TABLET PO ONE (03:11)
[2017-02-12] MEDS ORDERED: DIAZEPAM INJ 10 MG/2 ML DISP.SYRIN IV ONE (03:11)
[2017-02-12] MEDS ORDERED: ASPIRIN 325 MG TABLET PO ONE (03:12)
[2017-02-12 04:09] LABS: URINE BARBITURATES SCREEN NEGATIVE; URINE METHADONE SCREEN NEGATIVE; URINE OPIATES LOW NEGATIVE; URINE PHENCYCLIDINE SCREEN NEGATIVE
[2017-02-12 04:12] LABS: APPEARANCE,URINE SLIGHTLY-CLOUDY; BILIRUBIN,URINE NEGATIVE (NEGATIVE); GLUCOSE, URINE NEGATIVE (NEGATIVE); KETONES,URINE 20 mg/dL (NEGATIVE); LEUKOCYTE ESTERASE,URINE SMALL (NEGATIVE); NITRITE,URINE NEGATIVE (NEGATIVE); PROTEIN,URINE 30 mg/dL (NEGATIVE); URINE SPECIFIC GRAVITY 1.024
[2017-02-12] MEDS ORDERED: LORAZEPAM INJ 2 MG/1 ML VIAL IV ONE (04:40)
[2017-02-12] MEDS ORDERED: SULFAMETHOXAZOLE/TRIMETHOPRIM 800-160 MG TABLET PO ONE (04:58)
[2017-02-12] MEDS ORDERED: METOPROLOL SUCCINATE 25 MG TAB.SR.24H PO ONE (05:57)
[2017-02-12 06:08] VITALS: BP 143/100
[2017-02-12 06:50] LABS: CHLAM PCR NOT DETECTED (NOT DETECT)
--- NOTE | 2017-02-12 07:50 | EKG REPORT ---
SEVERITY:- ABNORMAL ECG - SINUS RHYTHM LEFT ATRIAL ABNORMALITY LEFT VENTRICULAR HYPERTROPHY : Confirmed by: Alexi Tran MD 12-Feb-2017 07:50:07
== END 2017-02-12 06:17 | disposition home or self-care (01) ==
LOC: ER 01:26
DX: N39.0 Urinary tract infection, site not specified (principal); R07.9 Chest pain, unspecified; R42 Dizziness and giddiness; I10 Essential (primary) hypertension; Z79.899 Other long term (current) drug therapy; F17.200 Nicotine dependence, unspecified, uncomplicated
CPT/HCPCS: 93005; 96376; 99285; 96374; 96375; 36415; 87086; 82553; 82550; 85025; 80053; 81001; 84484; 80307; 87491; 87591; 71020; 93010; J3360; J3490; J2060

== ENCOUNTER 2017-02-25 13:28 | Emergency (ER) | payer SELFPAY ==
[2017-02-25] MEDS ORDERED: ASPIRIN 81 MG TABLET, CHEWABLE PO ONE (13:57)
[2017-02-25 14:22] LABS: ABSOLUTE BASOPHILS # (AUTO) 0.1 10^3/uL (0.0-0.2); ABSOLUTE EOSINOPHILS # (AUTO) 0.2 10^3/uL (0.0-0.6); ABSOLUTE LYMPHOCYTES (AUTO) 1.4 10^3/uL (0.5-4.7); ABSOLUTE MONOCYTES (AUTO) 0.6 10^3/uL (0.1-1.4); ABSOLUTE NEUT (AUTO) 5.2 10^3/uL (1.7-8.2); BASOPHILS % (AUTO) 1.3 % (0-2); EOSINOPHILS % (AUTO) 2.1 % (0-6); HEMATOCRIT 46.7 % (37.9-51.0); HEMOGLOBIN 15.3 g/dL (13.5-17.0); HGB HCT DIFFERENCE -0.8; LYMPHOCYTES % (AUTO) 18.3 % (13-45); MEAN CORPUSCULAR HEMOGLOBIN 27.7 pg (27.0-33.4); MEAN CORPUSCULAR HGB CONC 32.8 g/dL (32.0-36.0); MEAN CORPUSCULAR VOLUME 84 fl (80-97); MONOCYTES % (AUTO) 7.7 % (3-13); RED BLOOD COUNT 5.54 10^6/uL (4.35-5.55); RED CELL DISTRIBUTION WIDTH 15.9 % (11.5-14.0); SEGMENTED NEUTROPHILS % (AUTO) 70.6 % (42-78); WHITE BLOOD COUNT 7.4 10^3/uL (4.0-10.5)
[2017-02-25] MEDS ORDERED: NITROGLYCERIN 0.4 MG/TAB 25 TAB/BOTTLE SL PRN (14:23)
[2017-02-25] MEDS ORDERED: METOPROLOL TARTRATE PF/INJ 5 MG/5 ML SDV IV ONE (14:26)
[2017-02-25 14:32] LABS: ALANINE AMINOTRANSFERASE 26 U/L (21-72); ALKALINE PHOSPHATASE 79 U/L (38-126); ANION GAP 11 (5-19); ASPARTATE AMINO TRANSFERASE 21 U/L (17-59); BILIRUBIN,DIRECT 0.4 mg/dL (0.0-0.4); BILIRUBIN,TOTAL 0.9 mg/dL (0.2-1.3); BLOOD UREA NITROGEN 12 mg/dL (7-20); CALCIUM 9.3 mg/dL (8.4-10.2); CARBON DIOXIDE 24 mmol/L (22-30); CHLORIDE 106 mmol/L (98-107); CREATINE KINASE 48 U/L (55-170); GLUCOSE 90 mg/dL (75-110); POTASSIUM 4.1 mmol/L (3.6-5.0); SODIUM 141.1 mmol/L (137-145); TOTAL PROTEIN 7.3 g/dL (6.3-8.2)
[2017-02-25] MEDS ORDERED: LORAZEPAM 0.5 MG TABLET PO ONE (14:32)
--- NOTE | 2017-02-25 14:32 | ER Document Report ---
ED General - General Mode of Arrival: Ambulatory Information source: Patient TRAVEL OUTSIDE OF THE [place] IN LAST 30 DAYS: No - HPI Onset: Just prior to arrival Quality of pain: Achy Associated symptoms: Other - muscle cramps Similar symptoms previously: Yes Recently seen / treated by doctor: Yes <MELANI MO - Last Filed: 02/25/17 21:16> <VIOLETA VARELA - Last Filed: 02/25/17 22:59> - General Chief Complaint: Chest Pain Stated Complaint: WEAKNESS Time Seen by Provider: 02/25/17 14:22 Notes: Patient is a 46 year old male that presents to the emergency department today with complaints of chest pain. Patient states that he walked from "[facility] to [facility]" for work today and he developed leg cramps and chest pain during the walk. Patient states he had no change in his pain after taking NTG. Patient was admitted to this facility during the end of October/Early November for chest pain and his pain was found to be non-cardiac at that time. Patient acknowledges that anxiety seemed to be a component of his chest pain during that admission. Patient denies any recent cough or fever. (MELANI MO ) - Related Data Allergies/Adverse Reactions: No Known Allergies Allergy (Verified 11/19/16 16:32) Past Medical History - General Information source: Patient, [facility] Records - Social History Smoking Status: Never Smoker Cigarette use (# per day): No Frequency of alcohol use: None Drug Abuse: None Lives with: Family Family History: Reviewed & Not Pertinent, CAD - Past Medical History Cardiac Medical History: Reports: Hx Hypertension Denies: Hx Coronary Artery Disease Psychiatric Medical History: Reports: Hx Anxiety Surgical Hx: Negative <MELANI MO - Last Filed: 02/25/17 21:16> Review of Systems - Review of Systems Constitutional: denies: Fever EENT: No symptoms reported Cardiovascular: See HPI, Chest pain Respiratory: denies: Cough Gastrointestinal: No symptoms reported Genitourinary: No symptoms reported Male Genitourinary: No symptoms reported Musculoskeletal: See HPI, Other - diffuse muscle cramps, leg pain, "spine" pain Skin: No symptoms reported Hematologic/Lymphatic: No symptoms reported Neurological/Psychological: No symptoms reported -: Yes All other systems reviewed and negative <MELANI MO - Last Filed: 02/25/17 21:16> Physical Exam - Vital signs Interpretation: Hypertensive <MELANI MO - Last Filed: 02/25/17 21:16> <VIOLETA VARELA - Last Filed: 02/25/17 22:59> - Vital signs Vitals: Pulse Ox 97 02/25/17 13:35 - Notes Notes: Physical Exam: General: Alert, appears well. HEENT: Normocephalic. Atraumatic. PERRL. Extraocular movements intact. Oropharynx clear. Neck: Supple. Non-tender. Respiratory: No respiratory distress. Clear and equal breath sounds bilaterally. Cardiovascular: Regular rate and rhythm. Abdominal: Normal Inspection. Non-tender. No distension. Normal Bowel Sounds. Back: Non-tender. No deformity or step off. Extremities: Moves all four extremities. Upper extremities: Normal inspection. Normal ROM. Lower extremities: Normal inspection. No edema. Normal ROM. Neurological: Normal cognition. AAOx4. Normal speech. Psychological: Anxious. Skin: Warm. Dry. Normal color. (MELANI MO) Course - Laboratory Result Diagrams: 02/25/17 13:42 02/25/17 13:42 <MELANI MO - Last Filed: 02/25/17 21:16> - Laboratory Result Diagrams: 02/25/17 13:42 02/25/17 13:42 - Diagnostic Test Radiology reviewed: Reports reviewed - EKG Interpretation by Sd EKG shows normal: Sinus rhythm Rate: Normal Rhythm: NSR <VIOLETA VARELA - Last Filed: 02/25/17 22:59> - Re-evaluation Re-evalutation: 02/25/17 15:48 Patient updated (MELANI MO) 02/25/17 17:09 Patient given GI cocktail and feels much better. 02/25/17 22:00 Patient is a 46-year-old male who presents to the emergency department complaining of chest pain. Patient has a history of noncompliance and has been admitted in the past for chest pain and hypertension with a negative workup. Patient had CT of chest and 3 negative troponins. He has been observed in the emergency department for 8 hours. patient feels much better after GI cocktail. He will be sent home with reflux medication and a referral to cardiology. Patient agrees with discharge. He wants to go home because he is feeling much better. Discussed at length with him and his brother. Social work referral will be put in to help him obtain insurance. Stable for discharge. Return if any worsening or concerning symptoms. (VIOLETA VARELA) - Vital Signs Vital signs: Temp Pulse Resp BP Pulse Ox 98.7 F 69 18 159/103 H 99 02/25/17 13:44 02/25/17 22:39 02/25/17 22:39 02/25/17 22:39 02/25/17 22:39 - Laboratory Laboratory results interpreted by me: 02/25/17 02/25/17 13:42 13:42 RDW 15.9 H Creatine Kinase 48 L Discharge <MELANI MO - Last Filed: 02/25/17 21:16> <VIOELTA VARELA - Last Filed: 02/25/17 22:59> - Discharge Clinical Impression: Atypical chest pain Hypertension Qualifiers: Hypertension type: essential hypertension Qualified Code(s): I10 - Essential ( primary) hypertension Gastroesophageal reflux disease Qualifiers: Esophagitis presence: with esophagitis Qualified Code(s): K21.0 - Gastro- esophageal reflux disease with esophagitis Condition: Stable Disposition: HOME, SELF-CARE Instructions: Chest Pain of Unclear Cause ([facility]), Reflux Disease (GERD) ([facility]) Prescriptions: Ranitidine HCl 150 mg PO BID #60 tablet Sucralfate [Carafate 1 gm Tablet] 1 gm PO ACHS #120 tablet Referrals: RILEY ADAMS MD [ACTIVE STAFF] - Follow up in 3-5 days Scribe Attestation: 02/25/17 22:59 I personally performed the services described in the documentation, reviewed and edited the documentation which was dictated to the scribe in my presence, and it accurately records my words and actions. (VIOLETA VARELA) Scribe Documentation - Scribe Written by Lesley:: Lesley Romero, 02/25/2017 1524 acting as scribe for :: Joseph <MELANI MO - Last Filed: 02/25/17 21:16>
--- NOTE | 2017-02-25 14:39 | RADIOLOGY REPORT (SQ) ---
EXAM DESCRIPTION: CHEST SINGLE VIEW/ portable COMPLETED DATE/TIME: 02/25/2017 2:23 pm REASON FOR STUDY: chest pain COMPARISON: None. NUMBER OF VIEWS: One view. TECHNIQUE: Single frontal radiographic view of the chest acquired. LIMITATIONS: None. FINDINGS: LUNGS AND PLEURA: No developing opacities, masses or pneumothorax. No pleural effusion. S lightly prominent basilar markings stable. MEDIASTINUM AND HILAR STRUCTURES: No masses. Contour normal. HEART AND VASCULAR STRUCTURES: Heart normal in size. Normal vasculature. BONES: No acute findings. HARDWARE: None in the chest. OTHER: No other significant finding. IMPRESSION: NO SIGNIFICANT RADIOGRAPHIC FINDING IN THE CHEST. TECHNICAL DOCUMENTATION: JOB ID: [id number] [employer]- All Rights Reserved
[2017-02-25 14:42] LABS: CREATINE KINASE MB 0.23 ng/mL (<4.55)
[2017-02-25 14:43] LABS: TROPONIN I < 0.012 ng/mL
[2017-02-25] MEDS ORDERED: NORMAL SALINE 500 ML IV ONE (14:53)
[2017-02-25] MEDS ORDERED: METOPROLOL TARTRATE 25 MG TABLET PO ONE ×2 (15:53→22:04)
--- NOTE | 2017-02-25 17:15 | EKG REPORT ---
SEVERITY:- ABNORMAL ECG - SINUS RHYTHM LEFT ATRIAL ABNORMALITY LEFT VENTRICULAR HYPERTROPHY BORDERLINE PROLONGED QT INTERVAL : Confirmed by: Jolene Gabriel MD 25-Feb-2017 17:14:38
--- NOTE | 2017-02-25 17:15 | EKG REPORT ---
SEVERITY:- ABNORMAL ECG - SINUS RHYTHM LEFT ATRIAL ABNORMALITY LEFT VENTRICULAR HYPERTROPHY BORDERLINE PROLONGED QT INTERVAL : Confirmed by: Jolene Gabriel MD 25-Feb-2017 17:14:29
[2017-02-25] MEDS ORDERED: SUCRALFATE 1 GM TABLET PO ONE (19:25)
[2017-02-25] MEDS ORDERED: FAMOTIDINE 20 MG TABLET PO ONE (19:25)
--- NOTE | 2017-02-25 20:24 | RADIOLOGY REPORT (SQ) ---
EXAM DESCRIPTION: CTA CHEST COMPLETED DATE/TIME: 02/25/2017 8:14 pm REASON FOR STUDY: CP, evaluate for PE COMPARISON: Chest x-ray done earlier the same day. TECHNIQUE: CT scan of the chest performed using helical scanning technique with dynamic intravenous contrast injection. Images reviewed with lung, soft tissue and bone windows. Reconstructed coronal and sagittal MPR images reviewed. Additional 3 dimensional post-processing performed to develop Maximal Intensity Projection images (HI P). All images stored on PACS. All CT scanners at this facility use dose modulation, iterative reconstruction, and/or weight based d osing when appropriate to reduce radiation dose to as low as reasonably achievable (ALARA). [facility]: Dose Right [facility]: CareDose [facility]: Dose Right [facility]: Teradose 4D [facility]: [employer] CONTRAST TYPE AND DOSE: 68 mL Isovue 370 RENAL FUNCTION: BUN 12, creatinine 1.0 RADIATION DOSE: 35.00 mGy. LIMITATIONS: None. FINDINGS: LUNGS AND PLEURA: No masses, infiltrates, pneumothorax. No pleural effusions, calcificati ons. AORTA AND GREAT VESSELS: No aneurysm or dissection. HEART: No pericardial effusion. PULMONARY ARTERIES: No emboli visualized in the main pulmonary arteries or the segmental branches. HILAR AND MEDIASTINAL STRUCTURES: No identified masses or abnormal nodes. HARDWARE: None in the chest. UPPER ABDOMEN: No significant findings. Limited exam. THYROID AND OTHER SOFT TISSUES: No masses. No adenopathy. BONES: No acute or significant finding. 3D MIPS: Confirm above findings. OTHER: No other significant finding. IMPRESSION: NORMAL CTA OF THE CHEST. NO PULMONARY EMBOLI. TECHNICAL DOCUMENTATION: JOB ID: [id number] Quality ID # [id number]: Final reports with documentation of one or more dose reduction techniques (e.g., Au tomated exposure control, adjustment of the mA and/or kV according to patient size, use of iterative reconstruction technique) 2010 [employer]- All Rights Reserved
[2017-02-25 22:40] VITALS: BP 159/103
== END 2017-02-25 22:39 | disposition home or self-care (01) ==
LOC: ER 13:28
DX: K21.0 Gastro-esophageal reflux disease with esophagitis (principal); I10 Essential (primary) hypertension; R07.9 Chest pain, unspecified; R53.1 Weakness
CPT/HCPCS: 93005; 99285; 96361; 96374; 36415; 82553; 82550; 85025; 80053; 84484; 71010; 71275; 93010; J3490; J7040

== ENCOUNTER 2019-01-17 16:01 | Observation (INO) | payer SELFPAY ==
[~2019-01-17 16:01] MED LIST: REGADENOSON INJ 0.4 MG/5 ML DISP.SYRIN IV ONE
[2019-01-17 16:39] LABS: ABSOLUTE BASOPHILS # (AUTO) 0.1 10^3/uL (0.0-0.2); ABSOLUTE EOSINOPHILS # (AUTO) 0.3 10^3/uL (0.0-0.6); ABSOLUTE LYMPHOCYTES (AUTO) 1.6 10^3/uL (0.5-4.7); ABSOLUTE MONOCYTES (AUTO) 0.5 10^3/uL (0.1-1.4); ABSOLUTE NEUT (AUTO) 4.7 10^3/uL (1.7-8.2); EOSINOPHILS % (AUTO) 4.4 % (0-6); HEMATOCRIT 42.2 % (37.9-51.0); HEMOGLOBIN 13.9 g/dL (13.5-17.0); LYMPHOCYTES % (AUTO) 22.8 % (13-45); MEAN CORPUSCULAR VOLUME 85 fl (80-97); MONOCYTES % (AUTO) 6.7 % (3-13); PLATELET COUNT 263 10^3/uL (150-450); RED BLOOD COUNT 4.97 10^6/uL (4.35-5.55); RED CELL DISTRIBUTION WIDTH 14.8 % (11.5-14.0); SEGMENTED NEUTROPHILS % (AUTO) 65.1 % (42-78); TOTAL CELLS COUNTED % (AUTO) 100 %; WHITE BLOOD COUNT 7.2 10^3/uL (4.0-10.5)
[2019-01-17 16:45] LABS: ALANINE AMINOTRANSFERASE 24 U/L (21-72); ALBUMIN 3.6 g/dL (3.5-5.0); ALKALINE PHOSPHATASE 56 U/L (38-126); ANION GAP 5 (5-19); ASPARTATE AMINO TRANSFERASE 24 U/L (17-59); BILIRUBIN,DIRECT 0.2 mg/dL (0.0-0.4); BILIRUBIN,TOTAL 0.4 mg/dL (0.2-1.3); BLOOD UREA NITROGEN 12 mg/dL (7-20); CALCIUM 9.1 mg/dL (8.4-10.2); CARBON DIOXIDE 26 mmol/L (22-30); CHLORIDE 107 mmol/L (98-107); CREATINE KINASE 182 U/L (55-170); GLUCOSE 93 mg/dL (75-110); POTASSIUM 4.2 mmol/L (3.6-5.0); SODIUM 138.4 mmol/L (137-145); TOTAL PROTEIN 6.6 g/dL (6.3-8.2)
[2019-01-17 16:56] LABS: CREATINE KINASE MB 0.36 ng/mL (<4.55)
[2019-01-17 16:57] LABS: TROPONIN I < 0.012 ng/mL
--- NOTE | 2019-01-17 17:12 | RADIOLOGY REPORT (SQ) ---
EXAM DESCRIPTION: CHEST SINGLE VIEW COMPLETED DATE/TIME: 01/17/2019 4:43 pm REASON FOR STUDY: Chest Pain COMPARISON: 02/12/2017 EXAM PARAMETERS: NUMBER OF VIEWS: One view. TECHNIQUE: Single frontal radiographic view of the chest acquired. RADIATION DOSE: NA LIMITATIONS: None. FINDINGS: LUNGS AND PLEURA: No opacities, masses or pneumothorax. No pleural effusion. MEDIASTINUM AND HILAR STRUCTURES: No masses. Contour normal. HEART AND VASCULAR STRUCTURES: Cardiomegaly. BONES: No acute findings. HARDWARE: None in the chest. OTHER: No other significant finding. IMPRESSION: Cardiomegaly without acute abnormality of the lungs. TECHNICAL DOCUMENTATION: JOB ID: [id number] [employer]- All Rights Reserved Reading location - IP/workstation name: [email or web address]
--- NOTE | 2019-01-17 17:24 | ER Document Report ---
ED General - General Chief Complaint: Chest Pain Stated Complaint: CHEST PAIN Time Seen by Provider: 01/17/19 17:02 Notes: 48-year-old male with history of hypertension noncompliant with medications presents to the emergency department for chest pain x2 hours. He was brought in by EMS and received aspirin 324 mg glycerin sublingual 2 times. He said the nitroglycerin did not help. He said he was at home playing with his son and he has some chest pain in his left lower chest that did not radiate with some associated dizziness. He laid down and he had some minor nausea and his palms were sweaty. But denies alcohol or drug use. Dad of an NH at 68 and brother of an NH at the age of 50. Patient was seen here 2 years ago for similar symptoms and had a negative cardiac work-up. Denies headache, dizziness, lightheadedness, shortness of breath, abdominal pain, any other symptoms. TRAVEL OUTSIDE OF THE [place] IN LAST 30 DAYS: No - Related Data Allergies/Adverse Reactions: No Known Allergies Allergy (Verified 11/19/16 16:32) Past Medical History - Social History Smoking Status: Current Every Day Smoker Frequency of alcohol use: Occasional Drug Abuse: None Family History: Reviewed & Not Pertinent, CAD Patient has suicidal ideation: No Patient has homicidal ideation: No - Past Medical History Cardiac Medical History: Reports: Hx Hypertension Denies: Hx Coronary Artery Disease Renal/ Medical History: Denies: Hx Peritoneal Dialysis Psychiatric Medical History: Reports: Hx Anxiety Review of Systems - Review of Systems Constitutional: See HPI EENT: No symptoms reported Cardiovascular: See HPI Respiratory: See HPI Gastrointestinal: See HPI Genitourinary: No symptoms reported Male Genitourinary: No symptoms reported Musculoskeletal: No symptoms reported Skin: No symptoms reported Hematologic/Lymphatic: No symptoms reported Neurological/Psychological: No symptoms reported Physical Exam - Vital signs Vitals: Resp Pulse Ox 12 97 01/17/19 16:05 01/17/19 16:05 - Notes Notes: PHYSICAL EXAMINATION: Reviewed vital signs and charting by RN GENERAL: Alert, interacts well. No acute distress. HEAD: Normocephalic, atraumatic. EYES: Pupils equal and round. Extraocular movements intact. ENT: Oral mucosa moist, tongue midline. NECK: Full range of motion. Supple. Trachea midline. LUNGS: Clear to auscultation bilaterally, no wheezes, rales, or rhonchi. No respiratory distress. HEART: Regular rate and rhythm. No murmur ABDOMEN: soft, non-tender. Non-distended. Bowel sounds present. no McBurney's point tenderness, no Castro sign. EXTREMITIES: Moves all 4 extremities spontaneously. No edema, No cyanosis. Normal distal neurovascular exam NEUROLOGIC: Oriented and appropriate. Normal speech. PSYCH: Normal affect, normal mood. SKIN: Warm, dry, normal turgor. No rashes or lesions noted. Course - Re-evaluation Re-evalutation: 01/17/19 17:15 Overall well-appearing. Patient initially extremely hypertension at 205/128 and then down to 167/103. Patient complaining of chest pain currently. Heart score 4 4 suspicion, age, risk factors. I called Dr. Almanzar who accepted the patient for telemetry observation. - Vital Signs Vital signs: Temp Pulse Resp BP Pulse Ox 97.4 F 56 L 16 176/108 H 99 01/17/19 18:35 01/17/19 18:35 01/17/19 18:35 01/17/19 18:35 01/17/19 18:35 - Laboratory Result Diagrams: 01/17/19 16:10 01/17/19 16:10 Laboratory results interpreted by me: 01/17/19 01/17/19 16:10 16:10 RDW 14.8 H Creatine Kinase 182 H Discharge - Discharge Clinical Impression: Chest pain Qualifiers: Chest pain type: unspecified Qualified Code(s): R07.9 - Chest pain, unspecified Condition: Good Disposition: ADMITTED OBSERVATION Admitting Provider: Jenelle (Hospitalist) Unit Admitted: Telemetry
--- NOTE | 2019-01-17 18:24 | PDOC H&P ---
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 Father had NJ at age 68, brother had NJ at age 50. He is presenting to ED complaining of chest pain 2 hours prior to arrival, he was resting when he suddenly felt pressure-like chest pain on the left side, 8/10 on intensity scale, constant, worse with movement, better with staying still, associated with lightheadedness. Denies any diaphoresis or syncope. Pain did not improve with nitro. Still having constant chest pain at the time of my encounter. Denies any nausea, vomiting, diarrhea, constipation, shortness of breath, numb ness, tingling, weakness or any urinary symptoms. In ED systolic blood pressure noted to be at 159, troponins less than 0.0121, CBC within normal limits, chest x-ray positive for cardiomegaly otherwise no acute changes. Some patients suspicious history and positive family history hospitalist consulted for admission. Last admission was on 11/26/2016 for hypertensive crisis, CVA and anxiety. Past Medical History Cardiac Medical History: Reports: Hypertension Denies: Coronary Artery Disease Social History Smoking Status: Current Every Day Smoker Frequency of Alcohol Use: None Drugs: None Family History Family History: Reviewed & Not Pertinent, CAD Parental Family History Reviewed: Yes Children Family History Reviewed: Yes Sibling(s) Family History Reviewed.: Yes Medication/Allergy Home Medications: Aspirin [Aspirin 325 mg Tablet] 325 mg PO DAILY tablet 11/21/16 Atorvastatin Calcium [Lipitor 20 mg Tablet] 20 mg PO QHS #30 tablet 11/21/16 Buspirone HCl [Buspar 10 mg Tablet] 10 mg PO QHS #30 tablet 11/21/16 Diazepam [Valium 5 mg Tablet] 5 mg PO Q8HP PRN #20 tablet 11/21/16 Hydroxyzine Pamoate [Vistaril 50 mg Capsule] 50 mg PO Q6HP PRN #30 capsule 11/21/16 Levetiracetam [Keppra 500 mg Tablet] 250 mg PO Q12 #60 tablet 11/21/16 Metoprolol Tartrate [Lopressor 25 mg Tablet] 100 mg PO Q12 #60 tablet 11/21/16 Trazodone HCl [Desyrel 50 mg Tablet] 50 mg PO QHS #30 tablet 11/21/16 Diazepam [Valium 5 mg Tablet] 5 mg PO Q8HP PRN #20 tablet 02/12/17 Lisinopril 20 mg PO DAILY #60 tablet 02/12/17 Metoprolol Succinate [Toprol Xl 25 mg Tab.sr] 25 mg PO DAILY #60 tab.sr.24h 02/12/17 Sulfamethoxazole/Trimethoprim [Bactrim Ds Tablet] 1 each PO BID #14 tablet 02/12/17 Ranitidine HCl 150 mg PO BID #60 tablet 02/25/17 Sucralfate [Carafate 1 gm Tablet] 1 gm PO ACHS #120 tablet 02/25/17 Allergies/Adverse Reactions: No Known Allergies Allergy (Verified 11/19/16 16:32) Review of Systems Review of Systems: as per hpi Physical Exam Vital Signs: Temp Pulse Resp BP Pulse Ox 98.8 F 67 15 154/109 H 98 01/17/19 16:13 01/17/19 16:13 01/17/19 18:01 01/17/19 18:01 01/17/19 18:01 Intake & Output 01/16/19 01/17/19 01/18/19 06:59 06:59 06:59 Weight 69.9 kg General appearance: PRESENT: no acute distress, well-developed, well-nourished Head exam: PRESENT: atraumatic, normocephalic Eye exam: PRESENT: conjunctiva pink, EOMI, PERRLA. ABSENT: scleral icterus Ear exam: PRESENT: normal external ear exam Mouth exam: PRESENT: moist, tongue midline Neck exam: ABSENT: carotid bruit, JVD, lymphadenopathy, thyromegaly Respiratory exam: PRESENT: clear to auscultation layne. ABSENT: rales, rhonchi, wheezes Cardiovascular exam: PRESENT: RRR. ABSENT: diastolic murmur, rubs, systolic murmur Pulses: PRESENT: normal dorsalis pedis pul Vascular exam: PRESENT: normal capillary refill GI/Abdominal exam: PRESENT: normal bowel sounds, soft. ABSENT: distended, guarding, mass, organolmegaly, rebound, tenderness Rectal exam: PRESENT: deferred Extremities exam: PRESENT: full ROM. ABSENT: calf tenderness, clubbing, pedal edema Neurological exam: PRESENT: alert, awake, oriented to person, oriented to place, oriented to time, oriented to situation, CN II-XII grossly intact. ABSENT: motor sensory deficit Psychiatric exam: PRESENT: appropriate affect, normal mood. ABSENT: homicidal ideation, suicidal ideation Skin exam: PRESENT: dry, intact, warm. ABSENT: cyanosis, rash Results Laboratory Results: 01/17/19 16:10 01/17/19 16:10 01/17/19 01/17/19 16:10 16:10 WBC 7.2 RBC 4.97 Hgb 13.9 Hct 42.2 MCV 85 MCH 28.0 MCHC 33.0 RDW 14.8 H Plt Count 263 Seg Neutrophils % 65.1 Lymphocytes % 22.8 Monocytes % 6.7 Eosinophils % 4.4 Basophils % 1.0 Absolute Neutrophils 4.7 Absolute Lymphocytes 1.6 Absolute Monocytes 0.5 Absolute Eosinophils 0.3 Absolute Basophils 0.1 Sodium 138.4 Potassium 4.2 Chloride 107 Carbon Dioxide 26 Anion Gap 5 BUN 12 Creatinine 0.98 Est GFR ( Amer) > 60 Est GFR (Non-Af Amer) > 60 Glucose 93 Calcium 9.1 Total Bilirubin 0.4 AST 24 ALT 24 Alkaline Phosphatase 56 Total Protein 6.6 Albumin 3.6 01/17/19 01/17/19 16:10 16:10 Creatine Kinase 182 H CK-MB (CK-2) 0.36 Troponin I < 0.012 Impressions: Chest X-Ray 01/17/19 16:06 IMPRESSION: Cardiomegaly without acute abnormality of the lungs. Assessment and Plan - Diagnosis (1) Chest pain Qualifiers: Chest pain type: unspecified Qualified Code(s): R07.9 - Chest pain, unspe cified Is this a current diagnosis for this admission?: Yes Plan: HEART Score 4. EKG no acute changes, initial troponins negative. Trend troponins, admit to telemetry, aspirin, statins, morphine as needed, sublingual nitroglycerin, optimize blood pressure. Stress test tomorrow for risk stratification. (2) HTN (hypertension) Is this a current diagnosis for this admission?: No Plan: Not controlled. Will start on beta-blockers, RONEL. PRN hydralazine. (3) Tobacco abuse Is this a current diagnosis for this admission?: No Plan: Counseled on quitting. NicoDerm patch.
[2019-01-17] MEDS ORDERED: ASPIRIN 325 MG TABLET PO ONE (18:29)
[2019-01-17] MEDS ORDERED: NITROGLYCERIN 0.4 MG/TAB 25 TAB/BOTTLE SL PRN (18:29)
[2019-01-17] MEDS ORDERED: IPRATROPIUM/ALBUTEROL 0.5-2.5 MG/3 ML AMPUL NEB PRN (18:35)
[2019-01-17] MEDS ORDERED: DEXTROSE 40% GEL 15 GM TUBE PO PRN ×2 (18:35)
[2019-01-17] MEDS ORDERED: ONDANSETRON 4 MG TAB.RAPDIS PO PRN (18:35)
[2019-01-17] MEDS ORDERED: DEXTROSE 50%-WATER 25 GM/50 ML DISP.SYRIN IV PRN ×2 (18:35)
[2019-01-17] MEDS ORDERED: DEXTROSE 5%-NORMAL SALINE 1,000 ML IV PRN (18:35)
[2019-01-17] MEDS ORDERED: GLUCAGON,HUMAN RECOMB 1 MG INJ SUBCUT PRN (18:35)
[2019-01-17] MEDS ORDERED: PROMETHAZINE HCL INJ 25 MG/1 ML VIAL IV PRN (18:35)
[2019-01-17] MEDS ORDERED: ACETAMINOPHEN 325 MG TABLET PO PRN (18:35)
[2019-01-17] MEDS ORDERED: DIAZEPAM 5 MG TABLET PO PRN (18:39)
[2019-01-17] MEDS: MORPHINE SULFATE 10 MG/ML INJ IV PRN (19:56)
[2019-01-17] MEDS: HYDRALAZINE HCL INJ/PF 20 MG/1 ML SDV IV PRN (20:00)
[2019-01-17] MEDS ORDERED: CARVEDILOL 6.25 MG TABLET PO SCH (22:00)
[2019-01-17] MEDS: BUSPIRONE HCL 10 MG TABLET PO SCH (22:50)
[2019-01-17] MEDS: HEPARIN SOD (PORCINE) 5,000 UNIT/ML 1 ML SYRINGE SUBCUT SCH (22:50)
[2019-01-17] MEDS: TRAZODONE HCL 50 MG TABLET PO SCH (22:50)
[2019-01-17] MEDS: FAMOTIDINE 20 MG TABLET PO SCH (22:50)
[2019-01-17] MEDS: ATORVASTATIN CALCIUM 40 MG TABLET PO SCH (22:50)
[2019-01-18] MEDS: MORPHINE SULFATE 10 MG/ML INJ IV PRN ×4 (02:13→20:27)
[2019-01-18 02:16] LABS: ABSOLUTE BASOPHILS # (AUTO) 0.1 10^3/uL (0.0-0.2); ABSOLUTE EOSINOPHILS # (AUTO) 0.4 10^3/uL (0.0-0.6); ABSOLUTE LYMPHOCYTES (AUTO) 2.4 10^3/uL (0.5-4.7); ABSOLUTE MONOCYTES (AUTO) 0.5 10^3/uL (0.1-1.4); BASOPHILS % (AUTO) 1.1 % (0-2); HEMATOCRIT 43.6 % (37.9-51.0); HEMOGLOBIN 14.8 g/dL (13.5-17.0); LYMPHOCYTES % (AUTO) 37.4 % (13-45); MEAN CORPUSCULAR HEMOGLOBIN 28.6 pg (27.0-33.4); MEAN CORPUSCULAR HGB CONC 33.8 g/dL (32.0-36.0); MEAN CORPUSCULAR VOLUME 85 fl (80-97); MONOCYTES % (AUTO) 8.2 % (3-13); PLATELET COUNT 252 10^3/uL (150-450); RED BLOOD COUNT 5.16 10^6/uL (4.35-5.55); RED CELL DISTRIBUTION WIDTH 14.9 % (11.5-14.0); SEGMENTED NEUTROPHILS % (AUTO) 46.3 % (42-78); TOTAL CELLS COUNTED % (AUTO) 100 %; WHITE BLOOD COUNT 6.4 10^3/uL (4.0-10.5)
[2019-01-18 02:33] LABS: URINE AMPHETAMINES SCREEN NEGATIVE; URINE BARBITURATES SCREEN NEGATIVE; URINE BENZODIAZEPINES SCREEN NEGATIVE; URINE COCAINE SCREEN NEGATIVE; URINE MARIJUANA (THC) SCREEN NEGATIVE; URINE METHADONE SCREEN NEGATIVE; URINE PHENCYCLIDINE SCREEN NEGATIVE
[2019-01-18 02:38] LABS: ANION GAP 7 (5-19); BLOOD UREA NITROGEN 10 mg/dL (7-20); CALCIUM 9.3 mg/dL (8.4-10.2); CARBON DIOXIDE 23 mmol/L (22-30); CHLORIDE 112 mmol/L (98-107); CHOLESTEROL 145.02 mg/dL (0-200); GLUCOSE 90 mg/dL (75-110); POTASSIUM 3.6 mmol/L (3.6-5.0); SODIUM 142.3 mmol/L (137-145); TRIGLYCERIDES 118 mg/dL (<150)
[2019-01-18 02:49] LABS: DIRECT LDL 86 mg/dL (<100)
[2019-01-18] MEDS: HEPARIN SOD (PORCINE) 5,000 UNIT/ML 1 ML SYRINGE SUBCUT SCH ×3 (06:18→22:10)
[2019-01-18] MEDS ORDERED: LISINOPRIL 10 MG TABLET PO SCH (10:00)
[2019-01-18] MEDS: FAMOTIDINE 20 MG TABLET PO SCH ×2 (10:17→22:09)
[2019-01-18] MEDS: DOCUSATE SODIUM 100 MG CAPSULE PO SCH (10:17)
[2019-01-18] MEDS: ASPIRIN 81 MG TABLET, CHEWABLE PO SCH (10:17)
[2019-01-18] MEDS: HYDRALAZINE HCL INJ/PF 20 MG/1 ML SDV IV PRN (10:18)
[2019-01-18] MEDS ORDERED: LABETALOL HCL INJ 20 MG/4 ML DISP.SYRIN IV PRN (12:42)
--- NOTE | 2019-01-18 13:29 | PDOC PROGRESS REPORT ---
Subjective Progress Note for:: 01/18/19 Subjective:: 48-year-old male with history of hypertension, smoker, family history of coronary artery disease with father with DC at the age of 68 Had DC at age of 50 came to the emergency room with complaints of chest pain he had a stress test this morning. His latest blood pressure is 167/110 he is on lisinopril 10 mg daily, Coreg 6.25 mg p.o. twice daily received hydralazine 10 mg IV 1 dose still blood pressure is 167/110. Patient is eager to go home. Explained to him that blood pressure is too high we had to monitor it closely before discharge he agreed and stay overnight. We are waiting for the stress test report. Reason For Visit: CHEST PAIN Physical Exam Vital Signs: Temp Pulse Resp BP Pulse Ox 98.2 F 64 16 174/93 H 98 01/18/19 11:34 01/18/19 11:34 01/18/19 11:34 01/18/19 11:34 01/18/19 11:34 Intake & Output 01/17/19 01/18/19 01/19/19 06:59 06:59 06:59 Weight 67.4 kg General appearance: PRESENT: no acute distress Head exam: PRESENT: atraumatic Eye exam: PRESENT: PERRLA Ear exam: PRESENT: normal external ear exam Neck exam: ABSENT: carotid bruit, JVD, lymphadenopathy, thyromegaly Respiratory exam: PRESENT: clear to auscultation layne. ABSENT: rales, rhonchi, wheezes Cardiovascular exam: PRESENT: tachycardia GI/Abdominal exam: PRESENT: normal bowel sounds, soft. ABSENT: distended, guarding, mass, organolmegaly, rebound, tenderness Rectal exam: PRESENT: deferred Extremities exam: PRESENT: full ROM. ABSENT: calf tenderness, clubbing, pedal edema Neurological exam: PRESENT: alert, awake, oriented to person, oriented to place, oriented to time, oriented to situation, CN II-XII grossly intact. ABSENT: motor sensory deficit Psychiatric exam: PRESENT: appropriate affect, normal mood. ABSENT: homicidal ideation, suicidal ideation Skin exam: PRESENT: dry, intact, warm. ABSENT: cyanosis, rash Results Laboratory Results: 01/18/19 02:06 01/18/19 02:06 01/17/19 01/17/19 01/18/19 16:10 16:10 02:06 WBC 7.2 6.4 RBC 4.97 5.16 Hgb 13.9 14.8 Hct 42.2 43.6 MCV 85 85 MCH 28.0 28.6 MCHC 33.0 33.8 RDW 14.8 H 14.9 H Plt Count 263 252 Seg Neutrophils % 65.1 46.3 Lymphocytes % 22.8 37.4 Monocytes % 6.7 8.2 Eosinophils % 4.4 7.0 H Basophils % 1.0 1.1 Absolute Neutrophils 4.7 3.0 Absolute Lymphocytes 1.6 2.4 Absolute Monocytes 0.5 0.5 Absolute Eosinophils 0.3 0.4 Absolute Basophils 0.1 0.1 Sodium 138.4 Potassium 4.2 Chloride 107 Carbon Dioxide 26 Anion Gap 5 BUN 12 Creatinine 0.98 Est GFR ( Amer) > 60 Est GFR (Non-Af Amer) > 60 Glucose 93 Calcium 9.1 Magnesium Total Bilirubin 0.4 AST 24 ALT 24 Alkaline Phosphatase 56 Total Protein 6.6 Albumin 3.6 Triglycerides Cholesterol LDL Cholesterol Direct VLDL Cholesterol HDL Cholesterol 01/18/19 02:06 WBC RBC Hgb Hct MCV MCH MCHC RDW Plt Count Seg Neutrophils % Lymphocytes % Monocytes % Eosinophils % Basophils % Absolute Neutrophils Absolute Lymphocytes Absolute Monocytes Absolute Eosinophils Absolute Basophils Sodium 142.3 Potassium 3.6 Chloride 112 H Carbon Dioxide 23 Anion Gap 7 BUN 10 Creatinine 0.83 Est GFR ( Amer) > 60 Est GFR (Non-Af Amer) > 60 Glucose 90 Calcium 9.3 Magnesium 2.1 Total Bilirubin AST ALT Alkaline Phosphatase Total Protein Albumin Triglycerides 118 Cholesterol 145.02 LDL Cholesterol Direct 86 VLDL Cholesterol 24.0 HDL Cholesterol 43 01/17/19 01/17/19 01/17/19 16:10 16:10 21:04 Creatine Kinase 182 H CK-MB (CK-2) 0.36 Troponin I < 0.012 < 0.012 01/18/19 02:06 Creatine Kinase CK-MB (CK-2) Troponin I < 0.012 Impressions: Chest X-Ray 01/17/19 16:06 IMPRESSION: Cardiomegaly without acute abnormality of the lungs. Assessment and Plan - Diagnosis (1) Chest pain Qualifiers: Chest pain type: unspecified Qualified Code(s): R07.9 - Chest pain, unspecified Is this a current diagnosis for this admission?: Yes Plan: HEART Score 4. EKG no acute changes, initial troponins negative. Trend troponins, admit to telemetry, aspirin, statins, morphine as needed, sublingual nitroglycerin, optimize blood pressure. Stress test tomorrow for risk stratification. 01/18/2019-patient came in with chest pains here strong family history of coronar y artery disease. EKG is negative for acute changes troponins are negative. He was started on aspirin, statins, morphine on as-needed basis, sublingual nitroglycerin. He went for the stress test this morning waiting for the report. Blood pressure is 167/100 plan to adjust his medications for better control. (2) HTN (hypertension) Is this a current diagnosis for this admission?: No Plan: Not controlled. Will start on beta-blockers, RONEL. PRN hydralazine. 01/18/2019-latest blood pressure is 167/110 he is receiving Coreg 6.25 mg p.o. twice a day, lisinopril 10 mg daily and IV hydralazine 10 mg every 6 hours as needed still blood pressure is very much elevated. Started on labetalol 10 mg IV every 6 as needed for systolic blood pressure more than 150. (3) Tobacco abuse Is this a current diagnosis for this admission?: No Plan: Counseled on quitting. NicoDerm patch. 01/18/2019-patient has history of chronic smoking smokes close to 1 pack/day. Placed on nicotine patches. - Time Time Spent with patient: 15-24 minutes Smoking Cessation Education: over 10 minutes Medications reviewed and adjusted accordingly: Yes Anticipated discharge: Home
[2019-01-18] MEDS: LISINOPRIL 10 MG TABLET PO SCH (14:35)
[2019-01-18] MEDS: NICOTINE 21 MG/24 HR PATCH.TD24 TD SCH (14:37)
--- NOTE | 2019-01-18 19:19 | DRAGON STRESS TEST REPORT ---
Intravenous Lexiscan Cardiolite stress test using single photon emmision computerized tomography. Date of procedure 01/18/2019.:Ordering Provider: Dr. Almanzar. Patient's status: NCAT patient. Indication: Chest pain. Coronary risk factors: Age, hypertension, dyslipidemia, tobacco abuse disorder, and family history of coronary artery disease. Resting EKG: Sinus Bradycardia. LVH by voltage. Stress EKG: No changes of ischemia. The patient had no chest pain or discomfort, and there were no arrhythmias seen. Reason for termination: Protocol. Conclusions: Normal EKG and hemodynamic response to IV Lexiscan. Nuclear data: At rest the patient was given 10.20 millicuries of technetium 99m sestamibi injected intravenously. As per protocol rest non gated SPECT images were obtained. Subsequently the patient was given intravenous Lexiscan at a dose of 0.4 mg in 5 mL intravenously, followed by flush with normal saline. Subsequently the stress dose of 31.0 millicuries of technetium 99m sestamibi was injected intravenously. As per protocol stress gated images were obtained. Nuclear interpretation: Review of images showed that there was liver contamination artifact of the inferior wall. In spite of this all segments of the myocardium had normal perfusion at rest, and normal perfusion post stress with IV Lexiscan. All segments of the myocardium had normal motion, contraction, and thickening by gated study. T. I D. ratio was normal at 1.15. There is no transient ischemic dilatation of the left ventricle. Computer read rest, and stress left ventricular ejection fraction were 49 %, and 54 %, respectively. Visually both the stress and rest ejection fractions were normal, and greater than 55%. Conclusion: 1. There is no scintigraphic evidence of Lexiscan induced myocardial ischemia. 2. There is no scintigraphic evidence of myocardial infarction/scar. Recommendations: Aggressive risk factor modification, and treating the underlying co- morbidities. MTDD
--- NOTE | 2019-01-18 19:23 | EKG REPORT ---
SEVERITY:- ABNORMAL ECG - SINUS RHYTHM PROBABLE LEFT ATRIAL ABNORMALITY LEFT VENTRICULAR HYPERTROPHY : Confirmed by: Brisa Quinones 18-Jan-2019 19:22:37
[2019-01-18] MEDS: CARVEDILOL 6.25 MG TABLET PO SCH (22:08)
[2019-01-18] MEDS: TRAZODONE HCL 50 MG TABLET PO SCH (22:08)
[2019-01-18] MEDS: BUSPIRONE HCL 10 MG TABLET PO SCH (22:08)
[2019-01-18] MEDS: ATORVASTATIN CALCIUM 40 MG TABLET PO SCH (22:17)
[2019-01-19] MEDS: MORPHINE SULFATE 10 MG/ML INJ IV PRN (04:25)
[2019-01-19] MEDS: HEPARIN SOD (PORCINE) 5,000 UNIT/ML 1 ML SYRINGE SUBCUT SCH (06:12)
[2019-01-19 09:26] LABS: ABSOLUTE BASOPHILS # (AUTO) 0.1 10^3/uL (0.0-0.2); ABSOLUTE EOSINOPHILS # (AUTO) 0.3 10^3/uL (0.0-0.6); ABSOLUTE LYMPHOCYTES (AUTO) 1.8 10^3/uL (0.5-4.7); ABSOLUTE MONOCYTES (AUTO) 0.4 10^3/uL (0.1-1.4); ABSOLUTE NEUT (AUTO) 3.3 10^3/uL (1.7-8.2); BASOPHILS % (AUTO) 1.1 % (0-2); EOSINOPHILS % (AUTO) 5.9 % (0-6); HEMATOCRIT 48.6 % (37.9-51.0); HEMOGLOBIN 15.8 g/dL (13.5-17.0); LYMPHOCYTES % (AUTO) 29.6 % (13-45); MEAN CORPUSCULAR HEMOGLOBIN 27.8 pg (27.0-33.4); MEAN CORPUSCULAR HGB CONC 32.5 g/dL (32.0-36.0); MEAN CORPUSCULAR VOLUME 86 fl (80-97); MONOCYTES % (AUTO) 7.1 % (3-13); PLATELET COUNT 312 10^3/uL (150-450); RED BLOOD COUNT 5.69 10^6/uL (4.35-5.55); RED CELL DISTRIBUTION WIDTH 14.9 % (11.5-14.0); SEGMENTED NEUTROPHILS % (AUTO) 56.3 % (42-78); TOTAL CELLS COUNTED % (AUTO) 100 %; WHITE BLOOD COUNT 5.9 10^3/uL (4.0-10.5)
[2019-01-19] MEDS: DOCUSATE SODIUM 100 MG CAPSULE PO SCH (09:29)
[2019-01-19] MEDS: CARVEDILOL 6.25 MG TABLET PO SCH (09:29)
[2019-01-19] MEDS: ASPIRIN 81 MG TABLET, CHEWABLE PO SCH (09:29)
[2019-01-19] MEDS: LISINOPRIL 10 MG TABLET PO SCH (09:30)
[2019-01-19] MEDS: NICOTINE 21 MG/24 HR PATCH.TD24 TD SCH (09:30)
[2019-01-19] MEDS: FAMOTIDINE 20 MG TABLET PO SCH (09:30)
[2019-01-19 09:55] LABS: ANION GAP 9 (5-19); BLOOD UREA NITROGEN 14 mg/dL (7-20); CALCIUM 9.3 mg/dL (8.4-10.2); CARBON DIOXIDE 28 mmol/L (22-30); CHLORIDE 105 mmol/L (98-107); GLUCOSE 75 mg/dL (75-110); POTASSIUM 4.3 mmol/L (3.6-5.0); SODIUM 141.8 mmol/L (137-145)
--- NOTE | 2019-01-19 12:37 | PDOC DISCHARGE SUMMARY ---
General - Admit/Disc Date/PCP Admission Date/Primary Care Provider: 01/17/19 17:49 Discharge Date: 01/19/19 - Discharge Diagnosis (1) Chest pain Is this a current diagnosis for this admission?: Yes Summary: 01/20/2000 [id number] male with history of untreated hypertension, chronic smoker, family history of coronary artery disease came in with complaints of chest pains. Stress test was negative. (2) HTN (hypertension) Is this a current diagnosis for this admission?: Yes Summary: 01/19/2019-patient has history of hypertension noncompliant with medications. Yesterday's blood pressure was elevated went up to 167/110. He was started on Coreg 6.5 mg p.o. twice a day and lisinopril 20 mg p.o. daily blood pressure is well controlled today it is 130/90. Low-sodium diet is advised. Prescriptions are given to the patient. Patient is strongly advised to follow-up with Dr. Gabriel as an outpatient. (3) Tobacco abuse Is this a current diagnosis for this admission?: No - Additional Information Discharge Diet: Cardiac Discharge Activity: Activity As Tolerated Prescriptions: Aspirin [Aspirin 81 mg Chewable Tablet] 81 mg PO DAILY #30 tab.chew Atorvastatin Calcium [Lipitor 40 mg Tablet] 40 mg PO QHS #30 tablet Carvedilol [Coreg 6.25 mg Tablet] 6.25 mg PO Q12 #60 tablet Lisinopril [Prinivil 10 mg Tablet] 20 mg PO DAILY #30 tablet Trazodone HCl [Desyrel 50 mg Tablet] 50 mg PO QHS #30 tablet Home Medications: Aspirin [Aspirin 81 mg Chewable Tablet] 81 mg PO DAILY #30 tab.chew 01/19/19 Atorvastatin Calcium [Lipitor 40 mg Tablet] 40 mg PO QHS #30 tablet 01/19/19 Carvedilol [Coreg 6.25 mg Tablet] 6.25 mg PO Q12 #60 tablet 01/19/19 Lisinopril [Prinivil 10 mg Tablet] 20 mg PO DAILY #30 tablet 01/19/19 Trazodone HCl [Desyrel 50 mg Tablet] 50 mg PO QHS #30 tablet 01/19/19 History of Present Illness History of Present Illness: DEON SARGENT is a 48 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 Father had IL at age 68, brother had IL at age 50. He is presenting to ED complaining of chest pain 2 hours prior to arrival, he was resting when he suddenly felt pressure-like chest pain on the left side, 8/10 on intensity scale, constant, worse with movement, better with staying still, associated with lightheadedness. Denies any diaphoresis or syncope. Pain did not improve with nitro. Still having constant chest pain at the time of my encounter. Denies any nausea, vomiting, diarrhea, constipation, shortness of breath, numbness, tingling, weakness or any urinary symptoms. In ED systolic blood pressure noted to be at 159, troponins less than 0.0121, CBC within normal limits, chest x-ray positive for cardiomegaly otherwise no acute changes. Some patients suspicious history and positive family history hospitalist consulted for admission. Last admission was on 11/26/2016 for hypertensive crisis, CVA and anxiety. Hospital Course Hospital Course: 01/20/2000 [id number] male admitted with untreated hypertension and he has a s gabby family history of coronary artery disease. Stress test was done which was negative. Blood pressures are elevated as today on day he was started on Coreg 6.5 mg twice a day lisinopril 20 mg daily and blood pressures are well controlled today. Patient is expressing desire to go home today. No acute events during the hospital course. Physical Exam Vital Signs: Temp Pulse Resp BP Pulse Ox 98.2 F 59 L 18 129/84 H 97 01/19/19 08:18 01/19/19 08:18 01/19/19 08:18 01/19/19 08:18 01/19/19 08:18 Intake & Output 01/18/19 01/19/19 01/20/19 06:59 06:59 06:59 Intake Total 1121 Balance 1121 Weight 67.4 kg 68.2 kg General appearance: PRESENT: no acute distress Head exam: PRESENT: normocephalic Mouth exam: PRESENT: dry mucosa Neck exam: ABSENT: carotid bruit, JVD, lymphadenopathy, thyromegaly Respiratory exam: PRESENT: clear to auscultation layne. ABSENT: rales, rhonchi, wheezes Cardiovascular exam: PRESENT: RRR. ABSENT: diastolic murmur, rubs, systolic murmur GI/Abdominal exam: PRESENT: normal bowel sounds, soft. ABSENT: distended, guarding, mass, organolmegaly, rebound, tenderness Rectal exam: PRESENT: deferred Extremities exam: PRESENT: full ROM. ABSENT: calf tenderness, clubbing, pedal edema Neurological exam: PRESENT: alert, awake, oriented to person, oriented to place, oriented to time, oriented to situation, CN II-XII grossly intact. ABSENT: motor sensory deficit Psychiatric exam: PRESENT: appropriate affect, normal mood. ABSENT: homicidal ideation, suicidal ideation Results Laboratory Results: 01/19/19 08:25 01/19/19 08:25 01/19/19 01/19/19 08:25 08:25 WBC 5.9 RBC 5.69 H Hgb 15.8 Hct 48.6 MCV 86 MCH 27.8 MCHC 32.5 RDW 14.9 H Plt Count 312 Seg Neutrophils % 56.3 Lymphocytes % 29.6 Monocytes % 7.1 Eosinophils % 5.9 Basophils % 1.1 Absolute Neutrophils 3.3 Absolute Lymphocytes 1.8 Absolute Monocytes 0.4 Absolute Eosinophils 0.3 Absolute Basophils 0.1 Sodium 141.8 Potassium 4.3 Chloride 105 Carbon Dioxide 28 Anion Gap 9 BUN 14 Creatinine 0.96 Est GFR ( Amer) > 60 Est GFR (Non-Af Amer) > 60 Glucose 75 Calcium 9.3 Magnesium 2.1 01/17/19 01/17/19 01/17/19 16:10 16:10 21:04 Creatine Kinase 182 H CK-MB (CK-2) 0.36 Troponin I < 0.012 < 0.012 01/18/19 02:06 Creatine Kinase CK-MB (CK-2) Troponin I < 0.012 Impressions: Chest X-Ray 01/17/19 16:06 IMPRESSION: Cardiomegaly without acute abnormality of the lungs. Qualifiers - * PATIENT BEING DISCHARGED WITH ANY OF THE FOLLOWING DIAGNOSIS: No VTE patient discharged on overlapping Therapy?: No
[2019-01-19 13:15] VITALS: BP 112/74
== END 2019-01-19 13:40 | disposition home or self-care (01) ==
LOC: ER 16:01 → EH 17:49 → 5 18:43
PROVIDERS: ADMIT Internal Medicine; ATTEND Internal Medicine
PROC: HZ31ZZZ Individual Counseling for Substance Abuse Treatment, Behavioral (ICD-10-PCS; principal; 2019-01-18)
DX: R07.9 Chest pain, unspecified (principal); I10 Essential (primary) hypertension; F17.210 Nicotine dependence, cigarettes, uncomplicated; R42 Dizziness and giddiness; F41.9 Anxiety disorder, unspecified; R11.0 Nausea; R61 Generalized hyperhidrosis; Z82.49 Family history of ischemic heart disease and other diseases of the circulatory system; Z91.14 Patient's other noncompliance with medication regimen; Z86.73 Personal history of transient ischemic attack (TIA), and cerebral infarction without residual deficits
CPT/HCPCS: 93005; 99285; 36415 ×3; 82553; 82550; 83735 ×2; 85025 ×3; 80048 ×2; 80053; 84484 ×2; 80307; 83036; 80061; 93017; 71045; 78452; 93010; 99407; G0378 ×2; A9500; J2785; J1644 ×2; J0360 ×2; J2270 ×3; Q9969; J7042

== ENCOUNTER 2020-05-23 03:18 | Emergency (ER) | payer SELFPAY ==
[2020-05-23 03:35] LABS: ABSOLUTE BASOPHILS # (AUTO) 0.1 10^3/uL (0.0-0.2); ABSOLUTE EOSINOPHILS # (AUTO) 0.1 10^3/uL (0.0-0.6); ABSOLUTE LYMPHOCYTES (AUTO) 1.4 10^3/uL (0.5-4.7); ABSOLUTE MONOCYTES (AUTO) 1.1 10^3/uL (0.1-1.4); ABSOLUTE NEUT (AUTO) 14.2 10^3/uL (1.7-8.2); BASOPHILS % (AUTO) 0.8 % (0-2); EOSINOPHILS % (AUTO) 0.7 % (0-6); HEMATOCRIT 42.1 % (37.9-51.0); HEMOGLOBIN 14.1 g/dL (13.5-17.0); LYMPHOCYTES % (AUTO) 8.3 % (13-45); MEAN CORPUSCULAR HEMOGLOBIN 27.5 pg (27.0-33.4); MEAN CORPUSCULAR HGB CONC 33.5 g/dL (32.0-36.0); MEAN CORPUSCULAR VOLUME 82 fl (80-97); MONOCYTES % (AUTO) 6.4 % (3-13); PLATELET COUNT 248 10^3/uL (150-450); RED BLOOD COUNT 5.13 10^6/uL (4.35-5.55); RED CELL DISTRIBUTION WIDTH 15.5 % (11.5-14.0); SEGMENTED NEUTROPHILS % (AUTO) 83.8 % (42-78); TOTAL CELLS COUNTED % (AUTO) 100 %; WHITE BLOOD COUNT 16.9 10^3/uL (4.0-10.5)
[2020-05-23 04:02] LABS: ALBUMIN 4.2 g/dL (3.5-5.0); ALKALINE PHOSPHATASE 74 U/L (38-126); ANION GAP 9 (5-19); ASPARTATE AMINO TRANSFERASE 20 U/L (17-59); BILIRUBIN,DIRECT 0.2 mg/dL (0.0-0.4); BILIRUBIN,TOTAL 0.6 mg/dL (0.2-1.3); BLOOD UREA NITROGEN 17 mg/dL (7-20); CALCIUM 9.1 mg/dL (8.4-10.2); CARBON DIOXIDE 25 mmol/L (22-30); CHLORIDE 105 mmol/L (98-107); CREATINE KINASE 66 U/L (55-170); GLUCOSE 125 mg/dL (75-110); POTASSIUM 3.6 mmol/L (3.6-5.0)
[2020-05-23 04:14] LABS: CREATINE KINASE MB 0.69 ng/mL (<4.55)
[2020-05-23] MEDS ORDERED: ONDANSETRON HCL INJ/PF 4 MG/2 ML SDV IV ONE (04:15)
[2020-05-23 04:16] LABS: TROPONIN I < 0.012 ng/mL
[2020-05-23] MEDS ORDERED: MORPHINE SULFATE 10 MG/ML INJ IV ONE ×2 (04:30→06:31)
--- NOTE | 2020-05-23 04:37 | ER Document Report ---
ED General - General TRAVEL OUTSIDE OF THE U.S. IN LAST 30 DAYS: No - Related Data Home Medications: metoprolol <ASHLEE MENDEZ - Last Filed: 05/23/20 05:52> <KEAGAN SANCHEZ - Last Filed: 05/23/20 09:23> - General Chief Complaint: Chest Pain Stated Complaint: CHEST PAIN Time Seen by Provider: 05/23/20 04:17 - HPI Notes: Patient is a 49-year-old male who presents the emergency department for evaluation of chest pain and nausea. He states that around midnight he had some fettuccine Bernard. About half an hour later he started to feel sick to his stomach. He developed a sharp chest/epigastric pain. It does not radiate. He did have one episode of nonbloody, nonbilious emesis. He states that that seemed to make his chest pain improved. He states that at first his pain was worsened by deep breaths, now does not seem to be. He describes some mild associated shortness of breath, but denies any diaphoresis or near syncope. Patient admits he has not been compliant with his metoprolol for some time. He states he has not seen his doctor secondary to COVID-19 pandemic. (ASHLEE MENDEZ) LEVEL OF SERVICE Dr. KEAGAN SANCHEZ (KEAGAN SANCHEZ) - Related Data Allergies/Adverse Reactions: No Known Allergies Allergy (Verified 11/19/16 16:32) Past Medical History - General Information source: Patient - Social History Smoking Status: Current Every Day Smoker Drug Abuse: None Family History: CAD - Premature CAD and brother, father Patient has homicidal ideation: No - Past Medical History Cardiac Medical History: Reports: Hx Hypertension Denies: Hx Coronary Artery Disease Renal/ Medical History: Denies: Hx Peritoneal Dialysis Psychiatric Medical History: Reports: Hx Anxiety, Hx Depression <ASHLEE MENDEZ - Last Filed: 05/23/20 05:52> Review of Systems - Review of Systems Constitutional: No symptoms reported EENT: No symptoms reported Cardiovascular: See HPI Respiratory: No symptoms reported Gastrointestinal: See HPI Genitourinary: No symptoms reported Musculoskeletal: No symptoms reported Skin: No symptoms reported Neurological/Psychological: No symptoms reported <ASHLEE MENDEZ - Last Filed: 05/23/20 05:52> Physical Exam <ASHLEE MENDEZ - Last Filed: 05/23/20 05:52> - Vital signs Vitals: Resp Pulse Ox 20 96 05/23/20 03:21 05/23/20 03:21 - Notes Notes: This is a 49-year-old male who appears his stated age, no acute distress. Initially when I saw the patient he was actively vomiting, pale, diaphoretic. He received some medication. Following the medication, he had normal skin color, no longer diaphoretic. Vital signs reviewed, please refer to chart. Head is normocephalic, atraumatic. Pupils equal round, reactive to light. Neck is supple without meningismus. Heart is regular rate and rhythm. Lungs are clear to auscultation bilaterally. Abdomen is soft, mild epigastric tenderness without rebound or guarding, normoactive bowel sounds throughout. Extremities without cyanosis, clubbing. Posterior calves are nontender. Peripheral pulses are equal. Skin is warm and dry. Patient is awake, alert, neurological exam is nonfocal. (ASHLEE MENDEZ) Course - Laboratory Result Diagrams: 05/23/20 03:26 05/23/20 03:26 - Diagnostic Test Radiology reviewed: Reports reviewed <ASHLEE MENDEZ - Last Filed: 05/23/20 05:52> - Laboratory Result Diagrams: 05/23/20 03:26 05/23/20 03:26 <KEAGAN SANCHEZ - Last Filed: 05/23/20 09:23> - Re-evaluation Re-evalutation: 05/23/20 04:35 Patient presents to the emergency department for evaluation via EMS of chest pain. He was given aspirin and nitroglycerin via EMS. His blood pressure was elevated at that time. Patient did not have any improvement in his pain with these nitroglycerin sublingually. His pain is sharp, more epigastric, and seems reproducible with palpation. I do not strongly suspect a cardiac etiology, but the patient certainly does have risk factors. Patient's EKG fails to show any acute ST elevation or changes. His blood pressure has improved significantly, his systolic blood pressures are in the 110-120 range. Patient is administered morphine. Because of his epigastric tenderness I did add a lipase. Patient is currently stable, we will continue to monitor. 05/23/20 05:52 Patient feeling improved, resting comfortably. His lipase was negative. Awaiting second troponin, which should be drawn at 630. I expected to be neg ative given the reproducibility of his pain, but given his risk factors it has been ordered. Patient is resting comfortably, will send him home with Paul assuming negative second troponin. He is told that he needs to take his metoprolol, follow-up closely with primary care. I also told the patient that he needs to quit smoking, and should discuss a possible stress test with his primary care provider, and that he does have multiple risk factors. He voiced understanding. (ASHLEE MENDEZ) 05/23/20 08:[address] ramirez for repeat troponin Patient's repeat troponin has increased from previous outpatient having continued active chest pain Consult cardiology Patient evaluated by cardiology bedside Dr. Kincaid. He is recommending we initiate Lovenox, nitro drip. Transfer to [facility] for intervention. Patient continually tachycardic, initiate CT angiogram chest rule out pulmonary embolus, CT angiogram finds a sending aortic dissection with thrombus in the pericardial sac Consult [facility] cardiac thoracic surgeon. Initiate esmolol drip in the emergency department target blood pressure 120, heart rate targeted at 60 bpm Patient's pain is well controlled with morphine 05/23/20 08:41 05/23/20 09:06 05/23/20 09:[address] Brian De Oliveira [facility]. Patient will be transported via helicopter for emergent intervention 05/23/20 09:[address] KEAGAN SANCHEZ (KEAGAN SANCHEZ) - Vital Signs Vital signs: Temp Pulse Resp BP Pulse Ox 97.9 F 18 165/102 H 96 05/23/20 09:05 05/23/20 09:05 05/23/20 09:05 05/23/20 09:05 - Laboratory Laboratory results interpreted by de: 05/23/20 05/23/20 03:26 03:26 WBC 16.9 H RDW 15.5 H Lymph % (Auto) 8.3 L Absolute Neuts (auto) 14.2 H Seg Neutrophils % 83.8 H Glucose 125 H - Diagnostic Test Radiology results interpreted by me: 05/23/20 05:53 Chest X-Ray 05/23/20 04:35 IMPRESSION: 1. Partial indistinctness of the lateral aspect of the left hemidiaphragm possibly due to atelectasis or an adjacent cardiac fat pad. 2. Otherwise, the lungs are clear. (ASHLEE MENDEZ) - EKG Interpretation by Me Additional EKG results interpreted by me: 05/23/20 04:37 Sinus mechanism with a rate of 78 bpm. Normal axis. Borderline prolonged QT interval. Nonspecific ST changes, but no acute changes concerning for ischemia or infarction. No significant change when compared to prior study. (PAYAM MENDEZ) Critical Care Note - Critical Care Note Total time excluding time spent on procedures (mins): 32 <KEAGAN SANCHEZ - Last Filed: 05/23/20 09:23> Discharge <ASHLEE MENDEZ - Last Filed: 05/23/20 05:52> <KEAGAN SANCHEZ - Last Filed: 05/23/20 09:23> - Discharge Clinical Impression: Epigastric abdominal pain Nausea & vomiting Qualifiers: Vomiting type: unspecified Vomiting Intractability: non-intractable Qualified Code(s): R11.2 - Nausea with vomiting, unspecified Chest pain Qualifiers: Chest pain type: unspecified Qualified Code(s): R07.9 - Chest pain, unspecified Aortic dissection Qualifiers: Aortic location: thoracic aorta Qualified Code(s): I71.01 - Dissection of thoracic aorta Condition: Stable Disposition: [facility]
--- NOTE | 2020-05-23 05:24 | RADIOLOGY REPORT (SQ) ---
EXAM DESCRIPTION: X-ray single view chest. CLINICAL HISTORY: 49 years Male, chest pain COMPARISON: 01/17/2019 TECHNIQUE: Single portable x-ray view of the chest performed on 05/23/2020 at 5:01 AM FINDINGS: The lungs are well expanded and are grossly clear. There is partial indistinctness of the lateral aspect of the left hemidiaphragm which may be due to atelectasis or cardiac fat pad. There is no evidence of a pneumothorax. The cardiac silhouette is normal in size and configuration. The mediastinal contours are normal. No acute osseous abnormality is identified. No focal soft tissue abnormalities are seen. Lines and tubes: None. IMPRESSION: 1. Partial indistinctness of the lateral aspect of the left hemidiaphragm possibly due to atelectasis or an adjacent cardiac fat pad. 2. Otherwise, the lungs are clear.
[2020-05-23] MEDS ORDERED: ONDANSETRON ODT 4 MG TAB (6 TAB/ER DISP) PO PRN (05:56)
--- NOTE | 2020-05-23 06:24 | EKG REPORT ---
SEVERITY:- ABNORMAL ECG - SINUS RHYTHM LEFT ATRIAL ABNORMALITY LEFT VENTRICULAR HYPERTROPHY BORDERLINE PROLONGED QT INTERVAL : Confirmed by: Alexi Tran MD 23-May-2020 06:24:26
[2020-05-23] MEDS ORDERED: NITROGLYCERIN/D5W 50 MG/250 ML RTUINJ IV PRN (08:25)
[2020-05-23] MEDS ORDERED: ESMOLOL HCL/SOD CL 2,500 MG/250 ML RTUINJ IV PRN (08:42)
--- NOTE | 2020-05-23 09:19 | RADIOLOGY REPORT (SQ) ---
EXAM DESCRIPTION: CTA CHEST IMAGES COMPLETED DATE/TIME: 05/23/2020 9:02 am REASON FOR STUDY: chest pain COMPARISON: 02/25/2017. TECHNIQUE: CT scan of the chest performed using helical scanning technique with dynamic intravenous contrast injection. Images reviewed with lung, soft tissue and bone windows. Reconstructed coronal and sagittal MPR images reviewed. Additional 3 dimensional post-processing performed to develop Maximal Intensity Projection images (MA P). All images stored on PACS. All CT scanners at this facility use dose modulation, iterative reconstruction, and/or weight based d osing when appropriate to reduce radiation dose to as low as reasonably achievable (ALARA). [facility]: Dose Right [facility]: CareDose [facility]: Dose Right [facility]: Teradose 4D [facility]: Snipi CONTRAST TYPE AND DOSE: contrast/concentration: Isovue 350.00 mmol/ml; Total Contrast Delivered: 56. 0 ml; Total Saline Delivered: 70.0 ml Contrast bolus adequate for the thoracic aorta. Not optimized for the pulmonary arteries. RENAL FUNCTION: BUN 17 creatinine 1.07. RADIATION DOSE: CT Rad equipment meets quality standard of care and radiation dose reduction techniq ues were employed. CTDIvol: 13.2 - 16.5 mGy. DLP: 1076 mGy-cm. . LIMITATIONS: None. FINDINGS: LUNGS AND PLEURA: No masses, infiltrates, or pneumothorax. No pleural effusions or pleura l calcifications. AORTA AND GREAT VESSELS: There is aneurysmal dilation of the ascending thoracic aorta, maximum transv erse measurement approximately 5.2 cm. There is aortic dissection which begins at the aortic valve a nd extends to the upper descending thoracic aorta, past the origin of the great vessels. The contras t filled true lumen supplies the major branches of the aortic arch. There is indistinct intermediate density material around the ascending thoracic aorta and aortic arch. HEART: Moderate intermediate density pericardial effusion, maximum measurement approximately 2 cm. No significant coronary artery calcifications. PULMONARY ARTERIES: Contrast bolus not optimized focal pulmonary arteries. HILAR AND MEDIASTINAL STRUCTURES: No identified masses or abnormal nodes. HARDWARE: None in the chest. UPPER ABDOMEN: No significant findings. Limited exam. THYROID AND OTHER SOFT TISSUES: No masses. No adenopathy. BONES: No acute or significant finding. 3D MIPS: Confirm above findings. OTHER: No other significant finding. IMPRESSION: 1. ASCENDING THORACIC AORTIC ANEURYSM. TYPE A AORTIC DISSECTION. THE CONTRAST FILLED TRUE LUMEN SUP PLIES THE MAJOR BRANCHES OF THE AORTIC ARCH. THERE IS INTERMEDIATE DENSITY MATERIAL AROUND THE ASCEN DING AORTA AND AORTIC ARCH CONCERNING FOR HEMATOMA. THERE IS ALSO A MODERATE PERICARDIAL EFFUSION AL SO CONCERNING FOR HEMATOMA. 2. NO OTHER SIGNIFICANT FINDINGS IN THE CHEST. COMMENT: Pertinent findings on the imaging study reported as a CRITICAL RESULT to KEAGAN Sifuentes t09:05 on 05/23/2020. Category of Critical Result: Thoracic aortic dissection. Quality ID # [id number]: Final reports with documentation of one or more dose reduction techniques (e.g., Au tomated exposure control, adjustment of the mA and/or kV according to patient size, use of iterative reconstruction technique) TECHNICAL DOCUMENTATION: JOB ID: [id number] 2010 [employer]- All Rights Reserved Reading location - IP/workstation name: [email or web address]
[2020-05-23] MEDS ORDERED: ENOXAPARIN SODIUM INJ 30 MG/0.3 ML DISP.SYRIN SUBCUT SCH (10:00)
[2020-05-23 10:47] VITALS: BP 106/90
== END 2020-05-23 10:20 | disposition short-term general hospital (02) ==
LOC: ER 03:18
DX: I71.01 Dissection of thoracic aorta (principal); I10 Essential (primary) hypertension; Z91.14 Patient's other noncompliance with medication regimen; R11.2 Nausea with vomiting, unspecified; R07.9 Chest pain, unspecified; R10.816 Epigastric abdominal tenderness; R10.13 Epigastric pain; R00.0 Tachycardia, unspecified; R06.02 Shortness of breath; F17.200 Nicotine dependence, unspecified, uncomplicated; Z82.49 Family history of ischemic heart disease and other diseases of the circulatory system
CPT/HCPCS: 93005; 96376; 99291; 96375; 96365; 96368; 36415; 82553; 82550; 83690; 85025; 80053; 84484; 71045; 71275; 93010; J2270; J3490 ×2; J2405

== ENCOUNTER 2020-10-07 03:16 | Emergency (ER) | payer SELFPAY ==
[2020-10-07] MEDS ORDERED: HYDROMORPHONE HCL INJ/PF 2 MG/ML AMPULE IV ONE ×3 (03:29→08:57)
[2020-10-07] MEDS ORDERED: NORMAL SALINE 1000 ML 1,000 ML IV ONE ×2 (03:30→10:02)
[2020-10-07] MEDS ORDERED: ONDANSETRON HCL INJ/PF 4 MG/2 ML SDV IV ONE (03:30)
--- NOTE | 2020-10-07 03:33 | ER Document Report ---
ED General - General TRAVEL OUTSIDE OF THE [place] IN LAST 30 DAYS: No <INOCENCIA RAJAN IV - Last Filed: 10/07/20 08:23> <SILVA CANSECO - Last Filed: 10/07/20 14:08> - General Chief Complaint: Chest Pain Stated Complaint: CHEST PAIN Time Seen by Provider: 10/07/20 03:28 - HPI Context: Chief Complaint: [Chest pain] [This is a 30-year-old male with a history of type a aortic dissection in May 2020. Patient was initially seen in this emergency department for complaint of chest pain and and was found to have the aneurysm and dissection on CT. Patient was transferred to [facility] for repair of his type a aortic dissection. Patient presents tonight stating that he is having pain similar to when he had his last dissection and states he is having it in the lower part of his chest. Patient has a history of hypertension and noncompliance with medications. Patient denies any recent history of fever, chills, shortness of breath, loss of sense of taste or loss of sense of smell, exposure to persons positive for Covid 19 or known exposure to persons under investigation for COVID-19. ] History obtained from [patient] Symptoms began:[1 hour prior to arrival] Onset: [Sudden] Timing: [Sudden] Quality: [Sharp] Intensity: [5 out of 5] Location: [Lower chest/upper epigastric region] Radiation: [Denies] [The pain does not migrate to a new location.] Aggravating factors: [none] Relieving factors: [none] [Denies] SOB [Denies] nausea [Denies] vomiting [Denies] sweats [Denies] fever [Denies] cough [Denies] calf or leg swelling or pain (INOCENCIA RAJAN IV) - Related Data Allergies/Adverse Reactions: No Known Allergies Allergy (Verified 10/07/20 03:41) Past Medical History - General Information source: Patient - Social History Smoking Status: Former Smoker Family History: CAD - Premature CAD and brother, father - Past Medical History Cardiac Medical History: Reports: Hx Hypertension Denies: Hx Coronary Artery Disease Renal/ Medical History: Denies: Hx Peritoneal Dialysis Psychiatric Medical History: Reports: Hx Anxiety, Hx Depression <INOCENCIA RAJAN IV - Last Filed: 10/07/20 08:23> Review of Systems <INOCENCIA RAJAN IV - Last Filed: 10/07/20 08:23> - Review of Systems Notes: Review of systems as below unless otherwise stated in HPI. CONSTITUTIONAL [No] fever, [No] chills. EYES [No] eye pain. ENT [No] URI symptoms, [No] sore throat, [No] ear pain. CARDIOVASCULAR Positive chest pain, [No] palpitations, [No] edema. RESPIRATORY [No] Cough, [No] SOB, [No] wheezing. GASTROINTESTINAL Positive abdominal pain, [No] nausea, [No] Diarrhea, [No] Vomiting, [No] constipation, [No] melena, [No] rectal bleeding. GENITOURINARY [No] dysuria, [No] urinary frequency, [No] hematuria, [No] urinary urgency MUSCULOSKELETAL [No] Back pain. SKIN [No] Rash. NEUROLOGIC [No] Headache, [No] recent seizures, [No] paralysis,[No] parathesias. ENDOCRINE [No] polyuria. HEMO/LYMPATIC [No] easy brusing PSYCHIATRIC [No] depression. (INOCENCIA RAJAN IV) Physical Exam <INOCENCIA RAJAN IV - Last Filed: 10/07/20 08:23> - Vital signs Vitals: Resp Pulse Ox 26 H 99 10/07/20 03:25 10/07/20 03:25 - Notes Notes: CONSTITUTIONAL [Vital signs reviewed, Patient appears comfortable, Alert and oriented X 3, Normal stature.] HEAD [Atraumatic, Normocephalic.] EYES [Eyes are normal to inspection, No discharge from eyes, Extraocular muscles int act, Sclera are normal, Conjunctiva are normal.] ENT [External ears normal to inspection, Nose examination normal, Mouth normal to inspection.] NECK [Normal ROM, No jugular venous distention, No meningeal signs, ] RESPIRATORY CHEST [Chest is nontender, Breath sounds normal, No respiratory distress.] CARDIOVASCULAR Tachycardic no murmurs, Normal S1 S2, No rub, No gallop.] ABDOMEN [Abdomen is nontender, No pulsatile masses, No other masses, Bowel sounds normal, No distension, No peritoneal signs, No hernias.] BACK [There is no CVA Tenderness, There is no tenderness to palpation, Normal ins pection.] UPPER EXTREMITY [Inspection normal, No cyanosis, No clubbing, No edema, LOWER EXTREMITY [Inspection normal, No cyanosis, No clubbing, No edema, No calf tenderness, NEURO [No focal motor deficits, No focal sensory deficits, Speech normal.] SKIN [Skin is warm, Skin is dry, Skin is normal color.] PSYCHIATRIC [Normal affect. ] (INOCENCIA RAJAN IV) Course - Laboratory Results Result Diagrams: 10/07/20 03:33 10/07/20 03:33 Critical Laboratory Results Reviewed: No Critical Results Attending or Supervising Physician who Reviewed Labs: INOCENCIA RAJAN IV - Radiology Results Critical Radiology Results Reviewed: Yes Attending or Supervising Physician who Reviewed Radiology: INOCENCIA RAJAN IV - Consults Dr. Nagy, vascular surgeon, [facility] Time consulted: 06:10 - Dr. Nagy excepted the patient for transfer. He did state that the patient will be on a waiting list at this time. He recommended that a second antihypertensive drip be started; he stated that diltiazem would be a reasonable choice to add in with the esmolol drip the patient is currently on Dr. Rey Time consulted: 08:12 - Dr. Rey stated he would come see the patient in the ED. He did ask that I reconsult with the vascular surgeon at [facility] about the use of nitroprusside to help manage the patient's blood pressure. Consulted provider: will come to ER <INOCENCIA RAJAN IV - Last Filed: 10/07/20 08:23> - Laboratory Results Result Diagrams: 10/07/20 03:33 10/07/20 03:33 <SILVA CANSECO - Last Filed: 10/07/20 14:08> - Re-evaluation Re-evalutation: Differential diagnosis: Aortic dissection, ACS, STEMI, hypertensive emergency, pancreatitis, cholecystitis, biliary colic MDM: Patient's initial blood pressure was markedly elevated with a systolic pressure in the 230s range. Patient was put on a esmolol drip after 2 doses of IV labetalol showed little improvement in terms of the patient's blood pressure. Patient has remained hypertensive despite the esmolol drip being at its maximum. After discussing the case with Dr. Nagy, vascular surgeon at [facility], a calcium channel geoff drip, specifically diltiazem was ordered to help bring the patient's blood pressure down. 10/07/20 07:16 Results of ED MSE discussed with patient. This MD discussed with patient transfer to [facility] for specialized vascular care. Patient states he is agreeable to transfer. (INOCENCIA RAJAN IV) 10/07/20 14:03 I have been asked to reevaluate this patient by nursing staff. This is a 50-year-old man seen initially overnight by Dr. Rajan who has an acute type B aortic dissection all the way down to external iliac. He is currently awaiting transfer to [facility] on the vascular surgery. His pain has been controlled with IV morphine. He is still intermittently having nausea and vomiting. I prescribed additional IV Compazine. Currently the patient is on 3 agents for control of his blood pressure. He is receiving IV esmolol, diltiazem and nitroprusside. Currently his pulse rate is 68 and his blood pressure is 125/68. His serum creatinine overnight was normal. I spoke with the transfer center at [facility] and they tell me that they are awaiting bed assignment and the surgical intensive care unit but they are still not able to authorize transport the patient. I requested consultation with the ED at [facility] regarding ED to ED transfer. Case has been reviewed with ED attending at [facility] Dr. Castro. He is agreed to accept the patient ED to ED at this time and they are doing a weather check for air transport. I am continuing to treat the patient's symptoms and to titrate his antihypertensive therapy. EMTALA form completed. I have updated the patient regarding status of his transfer at this time. Additional critical care management time by me: 90 minutes. (SILVA CANSECO) - Vital Signs Vital signs: Temp Pulse Resp BP Pulse Ox 98.7 F 81 13 129/77 H 93 10/07/20 13:56 10/07/20 03:41 10/07/20 13:51 10/07/20 13:51 10/07/20 13:51 Dr. Nagy stated that the diltiazem should be maxed out and then either nitroprusside or nitroglycerin could be started to reach a goal of systolic pressure of under 120 if needed. (INOCENCIA RAJAN IV) - Laboratory Results Laboratory Results Interpreted: 10/07/20 10/07/20 10/07/20 03:33 03:33 04:33 WBC 11.0 H RBC 5.61 H MCV 75 L MCH 24.7 L RDW 18.3 H Absolute Neuts (auto) 8.5 H Glucose 130 H Total Protein 8.4 H Urine Protein 100 H Urine Ketones TRACE H - EKG Interpretation by Me Additional EKG results interpreted by me: 10/07/20 07:21 EKG obtained on 10/07/2020 at 0323 hrs. was interpreted by this MD. Findings: Sinus rhythm, rate 81, LAD is present, LA intervals appears to be within normal limits, P waves preceding QRS complexes, QRS complexes appear to have a nonspecific intraventricular conduction delay, QTC is 479, there appears to be some ST elevation in leads V2 and V3 that was also present in the patient's last EKG done on 05/23/2020. There do not appear to be any patterns of ST depressions or reciprocal changes seen to suggest acute myocardial ischemia or infarction. Impression sinus rhythm with left axis deviation, nonspecific intraventricular conduction delay and nonspecific ST segments. (INOCENCIA RAJAN IV) - Consults Dr. Nagy, vascular surgeon, [facility] Reason for consultation: 10/07/20 07:27 Aortic dissection, uncontrolled hypertension (INOCENCIA RAJAN IV) Dr. Rey Reason for consultation: 10/07/20 08:12 medical management while pt waits for transfer to [facility] (INOCENCIA RAJAN IV) Critical Care Note - Critical Care Note Total time excluding time spent on procedures (mins): 120 - Management of aortic dissection and hypertensive emergency <INOCENCIA RAJAN IV - Last Filed: 10/07/20 08:23> Discharge <INOCENCIA RAJAN IV - Last Filed: 10/07/20 08:23> <SILVA CANSECO - Last Filed: 10/07/20 14:08> - Discharge Clinical Impression: Hypertensive emergency Aortic dissection Qualifiers: Aortic location: thoracoabdominal aorta Qualified Code(s): I71.03 - Dissection of thoracoabdominal aorta Condition: Serious Disposition: [facility]
[2020-10-07] MEDS ORDERED: LABETALOL HCL INJ 20 MG/4 ML DISP.SYRIN IV ONE ×4 (03:41→05:23)
[2020-10-07 03:59] LABS: ABSOLUTE BASOPHILS # (AUTO) 0.1 10^3/uL (0.0-0.2); ABSOLUTE EOSINOPHILS # (AUTO) 0.2 10^3/uL (0.0-0.6); ABSOLUTE LYMPHOCYTES (AUTO) 1.5 10^3/uL (0.5-4.7); ABSOLUTE MONOCYTES (AUTO) 0.7 10^3/uL (0.1-1.4); ABSOLUTE NEUT (AUTO) 8.5 10^3/uL (1.7-8.2); BASOPHILS % (AUTO) 1.2 % (0-2); EOSINOPHILS % (AUTO) 1.5 % (0-6); HEMATOCRIT 41.9 % (37.9-51.0); HEMOGLOBIN 13.9 g/dL (13.5-17.0); LYMPHOCYTES % (AUTO) 13.8 % (13-45); MEAN CORPUSCULAR HEMOGLOBIN 24.7 pg (27.0-33.4); MEAN CORPUSCULAR HGB CONC 33.1 g/dL (32.0-36.0); MEAN CORPUSCULAR VOLUME 75 fl (80-97); MONOCYTES % (AUTO) 6.3 % (3-13); PLATELET COUNT 338 10^3/uL (150-450); RED BLOOD COUNT 5.61 10^6/uL (4.35-5.55); RED CELL DISTRIBUTION WIDTH 18.3 % (11.5-14.0); SEGMENTED NEUTROPHILS % (AUTO) 77.2 % (42-78); TOTAL CELLS COUNTED % (AUTO) 100 %
[2020-10-07 04:01] LABS: ALBUMIN 4.4 g/dL (3.5-5.0); ALKALINE PHOSPHATASE 96 U/L (38-126); ANION GAP 8 (5-19); ASPARTATE AMINO TRANSFERASE 26 U/L (17-59); BILIRUBIN,DIRECT 0.3 mg/dL (0.0-0.4); BILIRUBIN,TOTAL 0.5 mg/dL (0.2-1.3); BLOOD UREA NITROGEN 20 mg/dL (7-20); CALCIUM 9.4 mg/dL (8.4-10.2); CARBON DIOXIDE 29 mmol/L (22-30); CHLORIDE 104 mmol/L (98-107); GLUCOSE 130 mg/dL (75-110); POTASSIUM 4.3 mmol/L (3.6-5.0); TOTAL PROTEIN 8.4 g/dL (6.3-8.2)
[2020-10-07] MEDS: ESMOLOL HCL/SOD CL 2,500 MG/250 ML RTUINJ IV PRN ×5 (04:30→15:13)
--- NOTE | 2020-10-07 04:52 | RADIOLOGY REPORT (SQ) ---
CT angiogram chest, abdomen and pelvis with and without contrast on 10/07/2020 at 3:57 AM CLINICAL INDICATION: History of aortic aneurysm, chest pain, question aortic dissection TECHNIQUE: Multiple axial images are obtained throughout the chest, abdomen and pelvis both prior to and following the administration of IV contrast. Computer generated 3D reconstructions/MIPS were performed. This exam was performed according to our departmental dose-optimization program, which includes automated exposure control, adjustment of the mA and/or kV according to patient size and/or use of iterative reconstruction technique. Total DLP is 1036.14 mGy*cm. COMPARISON: CT chest from 05/23/2020 FINDINGS: CHEST: There has been interval median sternotomy and repair of the prior type A aortic dissection. There is now a type B aortic dissection noted with contrast within both the true and false lumen that begins just posterior to the origin of the left subclavian artery. Previously the patient's dissection did not extend that far into the descending thoracic aorta. Now the dissection extends throughout the entire course of the aorta and extends into the left common and external iliac artery. 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 There is no pleural or pericardial effusion. There is minimal bilateral dependent atelectasis. Mild emphysematous changes of the lungs are noted. The lungs are otherwise clear. There is no thoracic adenopathy. There are no filling defects within the pulmonary arteries to suggest pulmonary embolus. The great vessels off the aortic arch are uninvolved with the dissection. No acute bony abnormality of the thorax is noted. ABDOMEN: The aortic dissection involves the entire course of the abdominal aorta. There is contrast within both the true and false lumen. The celiac artery is uninvolved. The dissection flap extends out the SMA for a long segment with short segment occlusion of the distal SMA seen between axial images 154 and 168 with reconstitution of flow in the more distal SMA. There are two right renal arteries and a single left renal artery all being fed by the true lumen. The GABBIE is also patent and fed from the true lumen. The dissection flap also extends minimally into the origin of the left renal artery. There is a tiny nonobstructing right renal stone. Solid abdominal organs are otherwise unremarkable. There is no abdominal adenopathy. There is no free fluid or free air within the abdomen. The abdominal portion of the GI tract is unremarkable. Pelvis: The dissection now extends into the left common iliac artery and external iliac artery. There is contrast within both the true and false lumen in these vessels as well. There is no significant iliac or proximal femoral stenosis. The prostate is enlarged, please correlate with physical exam and PSA levels. There is no free fluid in the pelvis. There is no pelvic adenopathy. Pelvic portion of the GI tract is unremarkable. No acute bony abnormality is noted. IMPRESSION: 1. Interval surgical repair of the prior type A aortic dissection however there is a new more extensive dissection that is now like a type B aortic dissection beginning posterior to the origin of the left subclavian artery and extending throughout the entire course of the thoracic and abdominal aorta and extending into the left common and external iliac arteries. The dissection flap extends out into the SMA for a long segment with a short segment occlusion of the SMA as above. The dissection flap also extends minimally into the proximal left renal artery. This case was discussed by myself by phone with Dr. Rajan in the emergency Department on 10/07/2020 at 4:40 AM eastern time. 2. 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 3. Prostate enlargement.
[2020-10-07 05:13] LABS: APPEARANCE,URINE SLIGHTLY-CLOUDY; BILIRUBIN,URINE NEGATIVE (NEGATIVE); COLOR,URINE YELLOW; GLUCOSE, URINE NEGATIVE (NEGATIVE); KETONES,URINE TRACE mg/dL (NEGATIVE); LEUKOCYTE ESTERASE,URINE NEGATIVE (NEGATIVE); NITRITE,URINE NEGATIVE (NEGATIVE); PROTEIN,URINE 100 mg/dL (NEGATIVE); UROBILINOGEN,URINE NEGATIVE mg/dL (<2.0)
[2020-10-07 05:38] LABS: URINE AMPHETAMINES SCREEN NEGATIVE; URINE BARBITURATES SCREEN NEGATIVE; URINE BENZODIAZEPINES SCREEN NEGATIVE; URINE COCAINE SCREEN NEGATIVE; URINE MARIJUANA (THC) SCREEN NEGATIVE; URINE METHADONE SCREEN NEGATIVE; URINE PHENCYCLIDINE SCREEN NEGATIVE
[2020-10-07] MEDS ORDERED: MORPHINE SULFATE 10 MG/ML INJ IV ONE ×2 (05:47→07:09)
[2020-10-07] MEDS: DILTIAZEM HCL/D5W 125 MG/125 ML RTUINJ IV PRN ×2 (06:58→15:14)
--- NOTE | 2020-10-07 08:33 | RADIOLOGY REPORT (SQ) ---
EXAM DESCRIPTION: CTA CHEST COMPLETE DATE/TIME: 10/07/2020 4:23 am REASON FOR STUDY: chest pain, h/o ascending aortic aneurysm FINDINGS: Please see combined report for performance of procedure and radiologic supervision and int erpretation. IMPRESSION: Please see combined report for performance of procedure and radiologic supervision and i nterpretation. Reading location - IP/workstation name: [id number]
[2020-10-07] MEDS ORDERED: MORPHINE SULFATE 10 MG/ML INJ IV PRN ×2 (09:26→09:31)
[2020-10-07] MEDS ORDERED: ONDANSETRON HCL INJ/PF 4 MG/2 ML SDV IV PRN (09:27)
--- NOTE | 2020-10-07 09:52 | PDOC CONSULTATION ---
Consultation Consult Date: 10/07/20 Attending physician:: INOCENCIA RAJAN IV Provider Consulted: SHIRA IVAN Consult reason:: AORTIC DISSECTION History of Present Illness Patient complains of: Abdominal pain History of Present Illness: DEON SARGENT is a 50 year old male with history of hypertension, type B aortic dissection status post open repair 3 months ago at [facility], who presents to the hospital with complaints of acute onset abdominal pain which started yesterday. The pain is located in his epigastrium and feels sharp with radiation to the back. Pain has been progressive. Currently rates it an 8-9 out of 10. He states he feels similar to the pain he was getting during his last dissection. He denies fever or chills. He did have an episode of vomiting just now which he states is from the amount of pain he is having. States he ate some chili's yesterday. He denies any history of stroke. He does admit to some tingling in his hands since his last dissection. Also having tingling in his lower extremities. Work-up in the ER revealed new findings of type B aortic dissection from his thoracic aorta distal to his left subclavian outlet going all the way down to his external iliac. Vascular surgery has been consulted and is accepted patient at [place] but he is currently on the wait list and recommended adding diltiazem to esmolol and third agent if unimproved. H ospitalist service consulted to assist with management patient is pending transfer. Past Medical History Cardiac Medical History: Reports: Hypertension Denies: Coronary Artery Disease Psychiatric Medical History: Reports: Depression Past Surgical History Past Surgical History: Reports: Vascular Surgery - Abdominal aortic dissection repair Social History Smoking Status: Former Smoker Frequency of Alcohol Use: None Drugs: None Family History Family History: CAD - Premature CAD and brother, father Parental Family History Reviewed: Yes Children Family History Reviewed: Yes Sibling(s) Family History Reviewed.: Yes Medication/Allergy Home Medications: Aspirin [Aspirin 81 mg Chewable Tablet] 81 mg PO DAILY #30 tab.chew 01/19/19 Atorvastatin Calcium [Lipitor 40 mg Tablet] 40 mg PO QHS #30 tablet 01/19/19 Carvedilol [Coreg 6.25 mg Tablet] 6.25 mg PO Q12 #60 tablet 01/19/19 Lisinopril [Prinivil 10 mg Tablet] 20 mg PO DAILY #30 tablet 01/19/19 Trazodone HCl [Desyrel 50 mg Tablet] 50 mg PO QHS #30 tablet 01/19/19 Allergies/Adverse Reactions: No Known Allergies Allergy (Verified 10/07/20 03:41) Review of Systems Constitutional: ABSENT: fatigue, fever(s) Eyes: ABSENT: visual disturbances Cardiovascular: PRESENT: chest pain - back of chest. ABSENT: palpitations Respiratory: ABSENT: cough, dyspnea Gastrointestinal: PRESENT: abdominal pain, nausea, vomiting Genitourinary: PRESENT: difficulty urinating Integumentary: ABSENT: diaphoresis Neurological: PRESENT: paresthesias - Feet. ABSENT: confusion Psychiatric: ABSENT: anxiety Endocrine: ABSENT: polyuria Hematologic/Lymphatic: ABSENT: easy bleeding, easy bruising Physical Exam Vital Signs: Temp Pulse Resp BP Pulse Ox 98.9 F 81 16 157/98 H 95 10/07/20 03:41 10/07/20 03:41 10/07/20 08:36 10/07/20 08:36 10/07/20 08:36 Intake & Output 10/06/20 10/07/20 10/08/20 06:59 06:59 06:59 Intake Total 1016 247 Balance 1016 247 Weight 77.1 kg General appearance: PRESENT: no acute distress, cooperative Head exam: PRESENT: normocephalic Eye exam: PRESENT: EOMI Neck exam: ABSENT: carotid bruit, JVD Respiratory exam: PRESENT: clear to auscultation layne, symmetrical, unlabored. ABSENT: tachypnea, wheezes Cardiovascular exam: PRESENT: RRR, +S1, +S2, systolic murmur - Prominent over RUSB and LLSB. ABSENT: tachycardia Pulses: PRESENT: normal dorsalis pedis pul GI/Abdominal exam: PRESENT: soft, tenderness - Mild in his upper abdomen. ABSENT: distended, firm, guarding, rebound, rigid Extremities exam: ABSENT: calf tenderness, pedal edema Musculoskeletal exam: PRESENT: ambulatory. ABSENT: deformity Neurological exam: PRESENT: alert, awake, oriented to person, oriented to place, oriented to time, oriented to situation. ABSENT: motor sensory deficit Psychiatric exam: ABSENT: agitated, anxious Focused psych exam: ABSENT: pressured speech Skin exam: ABSENT: jaundice Results Laboratory Results: 10/07/20 03:33 10/07/20 03:33 10/07/20 10/07/20 10/07/20 03:33 03:33 03:33 WBC 11.0 H RBC 5.61 H Hgb 13.9 Hct 41.9 MCV 75 L MCH 24.7 L MCHC 33.1 RDW 18.3 H Plt Count 338 Seg Neutrophils % 77.2 Sodium 140.8 Potassium 4.3 Chloride 104 Carbon Dioxide 29 Anion Gap 8 BUN 20 Creatinine 0.94 Est GFR ( Amer) > 60 Glucose 130 H Calcium 9.4 Total Bilirubin 0.5 AST 26 Alkaline Phosphatase 96 Total Protein 8.4 H Albumin 4.4 Lipase 107.5 Urine Color Urine Appearance Urine pH Ur Specific [place] Urine Protein Urine Glucose (UA) Urine Ketones Urine Blood Urine Nitrite Ur Leukocyte Esterase Urine WBC (Auto) Urine RBC (Auto) Blood Type A POSITIVE Antibody Screen NEGATIVE 10/07/20 04:33 WBC RBC Hgb Hct MCV MCH MCHC RDW Plt Count Seg Neutrophils % Sodium Potassium Chloride Carbon Dioxide Anion Gap BUN Creatinine Est GFR ( Amer) Glucose Calcium Total Bilirubin AST Alkaline Phosphatase Total Protein Albumin Lipase Urine Color YELLOW Urine Appearance SLIGHTLY-CLOUDY Urine pH 8.0 Ur Specific [place] 1.030 Urine Protein 100 H Urine Glucose (UA) NEGATIVE Urine Ketones TRACE H Urine Blood NEGATIVE Urine Nitrite NEGATIVE Ur Leukocyte Esterase NEGATIVE Urine WBC (Auto) 3 Urine RBC (Auto) 1 Blood Type Antibody Screen 10/07/20 03:33 Troponin I < 0.012 Impressions: Abdomen/Pelvis CTA 10/07/20 03:32 IMPRESSION: 1. Interval surgical repair of the prior type A aortic dissection however there is a new more extensive dissection that is now like a type B aortic dissection beginning posterior to the origin of the left subclavian artery and extending throughout the entire course of the thoracic and abdominal aorta and extending into the left common and external iliac arteries. The dissection flap extends out into the SMA for a long segment with a short segment occlusion of the SMA as above. The dissection flap also extends minimally into the proximal left renal artery. This case was discussed by myself by phone with Dr. Rajan in the emergency Department on 10/07/2020 at 4:40 AM eastern time. 2. 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 3. Prostate enlargement. Chest/Abdomen CTA 10/07/20 03:32 IMPRESSION: Please see combined report for performance of procedure and radiologic supervision and interpretation. Assessment and Plan - Diagnosis (1) Aortic dissection Qualifiers: Aortic location: thoracoabdominal aorta Qualified Code(s): I71.03 - Dissection of thoracoabdominal aorta Is this a current diagnosis for this admission?: Yes (2) Hypertensive emergency Is this a current diagnosis for this admission?: Yes (3) Nausea & vomiting Is this a current diagnosis for this admission?: Yes (4) Abdominal pain Is this a current diagnosis for this admission?: Yes - Plan Summary Summary: Patient has an acute type B aortic dissection all the way down to external iliac. He is currently awaiting transfer to [place] on the vascular surgery. Notably he is on an esmolol drip and Cardizem drip at 15 for impulse control. His blood pressure however during my interaction was still about 200 systolic. I have added a nitroprusside drip STAT for vasodilation Goal is to bring SBP down to 120systolic and reduce HR <60bpm if possible. His abdominal pain is also compromising ability to control his blood pressure so I have put him on morphine IV 4 mg every 3 hours. As needed antiemetics Monitor renal function and urine output-his type B dissection is involving his renal artery and patient is voicing difficulty with voiding since yesterday. Please keep up closely with the transfer situation given this vascular emergency. - Time Time Spent with patient: 35 or more minutes Anticipated Discharge Disposition: Tertiary Anticipated Discharge Timeframe: when bed available
[2020-10-07] MEDS: DEXTROSE 5%-WATER 250 ML with NITROPRUSSIDE SODIUM 50 MG IV PRN ×4 (10:28→13:24)
--- NOTE | 2020-10-07 11:35 | EKG REPORT ---
SEVERITY:- ABNORMAL ECG - SINUS RHYTHM LEFT ATRIAL ABNORMALITY NONSPECIFIC IVCD WITH LAD LEFT VENTRICULAR HYPERTROPHY : Confirmed by: Jolene Gabriel MD 07-Oct-2020 11:35:12
[2020-10-07] MEDS ORDERED: PROCHLORPERAZINE EDISYLATE INJ 10 MG/2 ML VIAL IV ONE (13:19)
[2020-10-07 13:58] VITALS: BP 129/77
== END 2020-10-07 15:30 | disposition short-term general hospital (02) ==
LOC: ER 03:16
DX: I71.03 Dissection of thoracoabdominal aorta (principal); I16.1 Hypertensive emergency; I10 Essential (primary) hypertension; R07.9 Chest pain, unspecified; R10.13 Epigastric pain; N40.0 Benign prostatic hyperplasia without lower urinary tract symptoms; R11.2 Nausea with vomiting, unspecified; R20.2 Paresthesia of skin; Z87.891 Personal history of nicotine dependence; Z98.890 Other specified postprocedural states; Z79.82 Long term (current) use of aspirin; Z79.899 Other long term (current) drug therapy; Z82.49 Family history of ischemic heart disease and other diseases of the circulatory system; Z20.822 Contact with and (suspected) exposure to COVID-19
CPT/HCPCS: 93005; 96376; 99285; 96361; 96375; 96365; 96366; 96368; 86900; 86901; 36415; 86850; 80307 ×2; 83690; 85025; 0241U; 80053; 81001; 84484; 71275; 74174; 93010; J3490 ×4; J2270; J1170; J0780; J2405; J7060; J7030; C9803